=== PATIENT | female | born 1970 | race Caucasian/White ===

== ENCOUNTER 2020-08-24 11:41 | Outpatient (REF) | payer OTHER, SELFPAY ==
[2020-08-24 12:19] LABS: COVID-19 Test Negative (Negative)
== END 2020-08-24 11:42 | disposition home or self-care (01) ==
LOC: HO.LAB 11:41
PROVIDERS: Visit Provider Internal Medicine
DX: Z20.828 Contact with and (suspected) exposure to other viral communicable diseases (principal)
CPT/HCPCS: 87635

== ENCOUNTER 2020-10-10 14:43 | Outpatient (REF) | payer SELFPAY | END 2020-10-10 14:44 | disposition home or self-care (01) | LOC: HO.LNP 14:43 | PROVIDERS: Visit Provider Pathology Anatomic Pathology & Clinical Pathology | DX: Z20.828 Contact with and (suspected) exposure to other viral communicable diseases (principal) | CPT/HCPCS: 0241U ==

== ENCOUNTER 2020-10-24 08:49 | Outpatient (REF) | payer OTHER, SELFPAY ==
[2020-10-24 09:55] LABS: COVID-19 Test Negative (Negative)
[2020-11-15 09:54] LABS: SARS-COV-2 PCR UMBRL NOT DETECTED
[2020-12-27 13:19] LABS: SARS-COV-2 PCR UMBRL NEGATIVE
[2021-01-10 08:14] LABS: SARS-COV-2 PCR UMBRL NEGATIVE
[2021-01-17 08:51] LABS: SARS-COV-2 PCR UMBRL NEGATIVE
[2021-01-24 08:53] LABS: SARS-COV-2 PCR UMBRL NEGATIVE
[2021-02-08 08:27] LABS: SARS-COV-2 PCR UMBRL NEGATIVE
[2021-03-03 13:32] LABS: SARS-COV-2 PCR UMBRL NEGATIVE
[2021-03-17 09:45] LABS: SARS-COV-2 PCR UMBRL NEGATIVE
== END 2020-10-24 08:50 | disposition home or self-care (01) ==
LOC: HO.EMPCOV 08:49
PROVIDERS: Visit Provider Internal Medicine
DX: Z20.828 Contact with and (suspected) exposure to other viral communicable diseases (principal)
CPT/HCPCS: 36415; 87635; C9803; U0003

== ENCOUNTER 2020-11-01 14:25 | Outpatient (REF) | payer OTHER, SELFPAY ==
[2020-11-01 14:49] LABS: COVID-19 Test Negative (Negative); IDNOW Serial# 55D5AD1C
== END 2020-11-01 14:26 | disposition home or self-care (01) ==
LOC: HO.LAB 14:25
PROVIDERS: Visit Provider Internal Medicine
DX: Z20.828 Contact with and (suspected) exposure to other viral communicable diseases (principal)
CPT/HCPCS: 87635; C9803

== ENCOUNTER → 2021-01-31 11:50 | Outpatient (BNVA) | payer OTHER, SELFPAY | PROVIDERS: PCP Internal Medicine; Visit Provider Physician Assistant ==

== ENCOUNTER → 2021-02-14 08:40 | Outpatient (BNVA) | payer OTHER, SELFPAY | PROVIDERS: PCP Internal Medicine; Visit Provider Surgery ==

== ENCOUNTER 2021-02-21 11:20 | Outpatient (REF) | payer OTHER, SELFPAY ==
--- NOTE | ~2021-02-21 | XR_ITS ---
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 FINDINGS: Lungs are clear. No consolidation, pneumothorax, or pleural effusion. Cardiac and mediastinal contours are normal. Pulmonary vasculature is unremarkable. Trachea is midline. Osseous structures are unremarkable. XR/XR chest 2V IMPRESSION: Normal chest radiographs.
--- NOTE | 2021-02-21 11:34 | ECG_ITS ---
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 Rate : 078 BPM Atrial Rate : 078 BPM P-R Int : 146 ms QRS Dur : 076 ms QT Int : 388 ms P-R-T Axes : 055 027 018 degrees QTc Int : 442 ms Normal sinus rhythm Normal ECG No previous ECGs available Referred By: Kristian Shaw Electronically Signed By:Britton Dong
[2021-02-21 12:05] LABS: MANUAL DIFF FLAG NO
[2021-02-21 12:14] LABS: Basophils Absolute Auto 0.1 X10*3/uL (0.0-0.2); Basophils Percent Auto 0.7 % (0-2); Eosinophils Absolute Auto 0.3 X10*3/uL (0.0-0.4); Eosinophils Percent Auto 3.3 % (0-4); Hematocrit 35.2 % (37-47); Hemoglobin 11.3 g/dl (12.0-16.0); Imm Gran Abs Auto 0.04 X10*3/uL (0.00-0.03); Imm Gran Pct Auto 0.5 % (0.0-0.4); Lymphocytes Absolute Auto 2.3 X10*3/uL (1.2-4.9); Lymphocytes Percent Auto 31.1 % (20-40); Mean Corpuscular HGB Conc 32.1 g/dl (31.0-35.0); Mean Corpuscular Hemoglobin 26.3 pg (27.0-33.0); Mean Corpuscular Volume 82.1 fL (80-98); Mean Platelet Volume 9.3 fL (9.4-12.3); Monocytes Absolute Auto 0.6 X10*3/uL (0.1-1.2); Monocytes Percent Auto 7.3 % (2-11); Neutrophils Absolute Auto 4.3 X10*3/uL (2.0-8.3); Neutrophils Percent Auto 57.1 % (45-73); Platelet Count 340 X10*3/uL (160-400); Red Blood Count 4.29 X10*6/uL (4.20-5.50); Red Cell Distribution Width 15.6 % (11.0-16.0); White Blood Count 7.5 X10*3/uL (4.8-10.8)
[2021-02-21 12:45] LABS: Estimated Average Glucose 105 mg/dL; Hemoglobin A1c % 5.3 %
[2021-02-21 12:53] LABS: Alanine Aminotransferase 16 U/L (0-31); Albumin Level 4.6 g/dL (3.5-5.0); Alkaline Phosphatase 68 U/L (39-117); Anion Gap 13 (12-20); Aspartate Amino Transferase 21 U/L (5-31); Bilirubin Total 0.7 mg/dL (0.0-1.0); Blood Urea Nitrogen 25 mg/dL (9-16); C Reactive Protein 2.57 mg/dL (< or = 0.50); Calcium 9.3 mg/dL (8.4-10.2); Carbon Dioxide 21 mmol/L (22-29); Chloride 104 mmol/L (96-108); Cholesterol 250 mg/dL; Estimated Glomerular Filt Rate > 60; Glucose Random 130 mg/dL (60-115); HDL Cholesterol 49 mg/dL; LDL Cholesterol Calculated 170 mg/dl; Potassium 4.4 mmol/L (3.3-5.1); Sodium 134 mmol/L (135-145); Total Protein 7.4 g/dL (6.5-8.0); Triglycerides 155 mg/dL
[2021-02-21 13:15] LABS: Ferritin 21 ng/mL (10-250); TSH reflex Free T4 1.26 uIU/mL (0.32-4.0); Vitamin D 25-OH Total 40.5 ng/mL (>30)
[2021-02-21 13:16] LABS: Folate 8.2 ng/mL (> or = 4.0); Vitamin B12 631 pg/mL (200-900)
[2021-02-22 09:17] LABS: Insulin Level Total 21.5 uIU/mL
[2021-02-23 13:46] LABS: Calcium (PTHI) 9.4 mg/dL (8.6-10.2); PTHI 41 pg/mL (14-64)
[2021-02-24 16:11] LABS: Zinc 83 mcg/dL (60-130)
[2021-02-25 12:01] LABS: Vitamin B1 16 nmol/L (8-30)
[2021-02-27 05:17] LABS: Vitamin A 69 mcg/dL (38-98)
== END 2021-02-21 11:21 | disposition home or self-care (01) ==
LOC: HO.LAB 11:20
PROVIDERS: PCP Physician Assistant Medical; Visit Provider Surgery
DX: E66.01 Morbid (severe) obesity due to excess calories (principal); G47.30 Sleep apnea, unspecified; I10 Essential (primary) hypertension; I48.91 Unspecified atrial fibrillation; K21.9 Gastro-esophageal reflux disease without esophagitis; D68.2 Hereditary deficiency of other clotting factors
CPT/HCPCS: 36415; 71046; 80053; 80061; 82306; 82607; 82728; 82746; 83036; 83525; 83970; 84425; 84443; 84590; 84630; 85025; 86140; 93005

== ENCOUNTER 2021-03-07 08:10 | Outpatient (REF) | payer OTHER, SELFPAY ==
--- NOTE | ~2021-03-07 | US_ITS ---
EXAMINATION: US COMPLETE ABDOMEN WITH LIVER ELASTOGRAPHY CLINICAL INFORMATION: Gastroesophageal reflux disease COMPARISON: None. TECHNIQUE: Real-time imaging of the abdominal viscera. Noninvasive ultrasound liver fibrosis assessment is performed using [employer] ElastPQ point quantification shear wave elastography (pSWE) with a C5-2 MHz transducer. Multiple elastography samples are obtained. FINDINGS: PANCREAS: The visualized pancreatic head and body are normal in appearance. The remainder of the pancreas is obscured from visualization by the overlying bowel gas. ABDOMINAL AORTA: The proximal, middle, and distal aortic segments are normal in caliber. INFERIOR VENA CAVA: Visualized portions are normal. LIVER: Normal. The liver demonstrates normal size, contour and echogenicity. No focal lesion or intrahepatic biliary duct dilatation. The right lobe measures 16 cm in length. The left lobe measures 11 cm in length. Portal flow is normal/stable Shear wave liver elastography median stiffness is 1.38 m/s (reference: normal median stiffness is 1.3 m/s or less). IQR/median stiffness to assess sampling precision is 0.13 (reference: good quality data set is IQR/median stiffness of 0.15 or less). GALLBLADDER: Normal. The gallbladder is physiologically distended without evidence of stones, sludge, polyps, wall thickening or pericholecystic fluid. COMMON BILE DUCT: Normal in caliber measuring 0.5 cm in diameter. RIGHT KIDNEY: Normal. No hydronephrosis. No renal calculi or focal parenchymal lesions. The kidney measures 12 cm in maximum dimension. LEFT KIDNEY: Normal. No hydronephrosis. No renal calculi or focal parenchymal lesions. The kidney measures 11.7 cm in maximum dimension. SPLEEN: Normal. The spleen measures 12.5 cm in maximum dimension. FREE FLUID: None. US/US abdomen comp w elastography IMPRESSION: 1. Impression: Echogenic liver. Limited visualization of the tail the pancreas. 2. Liver elastography: Minimally elevated liver stiffness. Adequate sampling. In the absence of other clinical signs, rule out compensated advanced chronic liver disease. REFERENCE: Society of Radiologists in Ultrasound Liver Stiffness Thresholds (2020): LIVER STIFFNESS THRESHOLDS: *Liver Stiffness equal or less than 1.3 m/s: High probability of being normal. *Liver Stiffness less than 1.7 m/s: In the absence of other known clinical signs, rules out compensated advanced chronic liver disease. *Liver Stiffness 1.7-2.1 m/s: Suggestive of compensated advanced chronic liver disease but need further test for confirmation. *Liver Stiffness over 2.1 m/s: Rules in compensated advanced chronic liver disease. *Liver Stiffness over 2.4 m/s: Suggestive of clinically significant portal hypertension. QUALITY OF DATA SET: *IQR/Median value equal or less than 0.15 implies a quality data set. *IQR/Median value over 0.15 implies a poor quality data set. SIGNIFICANT CHANGE FROM PRIOR EXAM: Significant change if liver stiffness measurement is 10% or greater from prior exam. OTHER CONSIDERATIONS: The stage of liver fibrosis may be overestimated in the setting of acute hepatitis, liver inflammation, elevated liver function tests, hepatic vascular congestion, obstructive cholestasis, non-fasting state, and infiltrative diseases such as amyloidosis and lymphoma. In some patients with NAFLD, the liver stiffness thresholds for compensated advanced chronic liver disease may be lower. In causes other than viral hepatitis and NAFLD, liver stiffness thresholds are not well established.
--- NOTE | ~2021-03-07 | FL_ITS ---
EXAMINATION: XR GI SERIES CLINICAL INFORMATION: Abdominal pain. COMPARISON: None. TECHNIQUE: Chain upper GI air contrast study was performed. FINDINGS: Following oral administration of thick barium and effervescent granules, there is normal propagation of bolus from the oral cavity through the pharynx and esophagus and into the stomach without any evidence of obstruction, narrowing or stricture. The course, caliber and peristalsis of the stomach or duodenal bulb are normal. There is a large gastroesophageal reflux into the mid esophagus. No hiatal hernia seen. FLUOROSCOPY TIME: 1.5 minutes. DOSE AREA PRODUCT: 70.698 uGy-m2 (microgray-meter squared). FL/FL upper GI series IMPRESSION: Large gastroesophageal reflux, otherwise unremarkable upper GI air-contrast study.
== END 2021-03-07 08:11 | disposition home or self-care (01) ==
LOC: HO.US 08:10
PROVIDERS: PCP Physician Assistant Medical; Visit Provider Surgery
DX: Z01.818 Encounter for other preprocedural examination (principal); E66.01 Morbid (severe) obesity due to excess calories; Z68.43 Body mass index [BMI] 50.0-59.9, adult; K21.9 Gastro-esophageal reflux disease without esophagitis; D68.2 Hereditary deficiency of other clotting factors; G47.30 Sleep apnea, unspecified; I10 Essential (primary) hypertension; I48.91 Unspecified atrial fibrillation; D64.9 Anemia, unspecified; Z71.3 Dietary counseling and surveillance
CPT/HCPCS: 74240; 76705; 76981

== ENCOUNTER → 2021-03-14 13:48 | Outpatient (BNVA) | payer OTHER, SELFPAY | PROVIDERS: PCP Internal Medicine; Visit Provider Dietitian, Registered | DX: E66.01 Morbid (severe) obesity due to excess calories (principal); Z68.43 Body mass index [BMI] 50.0-59.9, adult | CPT/HCPCS: 97802 ==

== ENCOUNTER 2021-03-20 12:37 | Day surgery (SDC) | payer OTHER, SELFPAY ==
[2021-03-14 11:14] VITALS: BMI 57.8
--- NOTE | 2021-03-19 08:41 | HO.ANESPROP2 ---
Documented by User: Elsa Jolynn 03/19/21 08:46 HPI - Anesthesia Eval Consult details Narrative: 50yo F for Upper Endoscopy Xarelto for Afib PMFSH Active Problems Active Problems: All Active Problems (Updated 03/07/21 @ 13:22 by Kristian Shaw MD) Anemia (Acute) Back pain (Acute) Insomnia (Acute) Panic attacks (Acute) Anxiety (Acute) Depression (Acute) Pulmonary embolism (Acute) Factor V deficiency (Acute) Sleep apnea with use of continuous positive airway pressure (CPAP) (Acute) GERD (gastroesophageal reflux disease) (Acute) Hypertension (Acute) Atrial fibrillation (Acute) Morbid obesity (Acute) Past Medical History Medical History Anxiety Atrial fibrillation Back pain COVID-19 Depression Factor V deficiency GERD (gastroesophageal reflux disease) Hypertension Insomnia Morbid obesity Panic attacks Pulmonary embolism Sleep apnea with use of continuous positive airway pressure (CPAP) Family History Family History Mother COPD (chronic obstructive pulmonary disease) Hypertension Hyperlipidemia Father No problems noted. Brother No problems noted. Brother No problems noted. Brother No problems noted. Sister No problems noted. Surgical History Surgical History Hx of hand surgery Hx of wisdom tooth extraction Social History Social History Alcohol intake: current Alcohol intake frequency: holidays/special occasions only Smoking Status: Former smoker Advance Directives Information Provided: No Meds Allergies Allergy/AdvReac Type Severity Reaction Status Date / Time citalopram [From Celexa] Allergy Severe hives Verified 03/07/21 11:58 Home Medications Medication Instructions Recorded Confirmed Last Taken Type escitalopram oxalate 10 mg tablet 10 mg PO DAILY 01/31/21 02/14/21 Unknown History lorazepam 0.5 mg tablet 0.5 mg PO BID PRN 01/31/21 02/14/21 Unknown History metoprolol tartrate 25 mg tablet 25 mg PO DAILY 01/31/21 02/14/21 03/20/21 History 12.5 mg rivaroxaban 20 mg tablet 20 mg PO DAILY 01/31/21 02/14/21 03/12/21 History trazodone 50 mg tablet 50 mg PO BEDTIME 01/31/21 02/14/21 Unknown History ascorbic acid (vitamin C) 250 mg 250 mg PO DAILY 02/14/21 02/14/21 Unknown History tablet cholecalciferol (vitamin D3) 25 25 mcg PO DAILY 02/14/21 02/14/21 Unknown History mcg (1,000 unit) capsule melatonin 5 mg capsule mg PO 02/14/21 02/14/21 Unknown History omega-3 fatty acids 500 mg capsule 500 mg PO DAILY 02/14/21 02/14/21 Unknown History omeprazole 10 mg capsule,delayed 10 mg PO DAILY 02/14/21 02/14/21 Unknown History release Exam Exam Date and Time: March 19, 2021 0841 Height,Weight and Vital Signs: Height 5 ft 2.5 in Weight 145.785 kg Pertinent Lab Results Pertinent Lab Results: Laboratory Tests 02/21/21 02/21/21 11:40 11:40 WBC 7.5 Hgb 11.3 L Hct 35.2 L Plt Count 340 Sodium 134 L Potassium 4.4 Chloride 104 Carbon Dioxide 21 L BUN 25 H Creatinine 0.93 Narrative Narrative: EKG 02/2021 Vent. Rate : 078 BPM Atrial Rate : 078 BPM P-R Int : 146 ms QRS Dur : 076 ms QT Int : 388 ms P-R-T Axes : 055 027 018 degrees QTc Int : 442 ms Normal sinus rhythm Normal ECG No previous ECGs available Assessment and Plan Assessment Anesthesia Assessment: Chart Reviewed Documented by User: Flower Moon 03/20/21 13:18 [facility] Past Medical History Medical History Anxiety Atrial fibrillation Back pain COVID-19 Depression Factor V deficiency GERD (gastroesophageal reflux disease) Hypertension Insomnia Morbid obesity Panic attacks Pulmonary embolism Sleep apnea with use of continuous positive airway pressure (CPAP) Family History Family History Mother COPD (chronic obstructive pulmonary disease) Hypertension Hyperlipidemia Father No problems noted. Brother No problems noted. Brother No problems noted. Brother No problems noted. Sister No problems noted. Surgical History Surgical History Hx of hand surgery Hx of wisdom tooth extraction Social History Social History Alcohol intake: current Alcohol intake frequency: holidays/special occasions only Smoking Status: Former smoker Advance Directives Information Provided: No Meds Allergies Allergy/AdvReac Type Severity Reaction Status Date / Time citalopram [From Celexa] Allergy Severe hives Verified 03/07/21 11:58 Home Medications Medication Instructions Recorded Confirmed Last Taken Type escitalopram oxalate 10 mg tablet 10 mg PO DAILY 01/31/21 02/14/21 Unknown History lorazepam 0.5 mg tablet 0.5 mg PO BID PRN 01/31/21 02/14/21 Unknown History metoprolol tartrate 25 mg tablet 25 mg PO DAILY 01/31/21 02/14/21 03/20/21 History 12.5 mg rivaroxaban 20 mg tablet 20 mg PO DAILY 01/31/21 02/14/21 03/12/21 History trazodone 50 mg tablet 50 mg PO BEDTIME 01/31/21 02/14/21 Unknown History ascorbic acid (vitamin C) 250 mg 250 mg PO DAILY 02/14/21 02/14/21 Unknown History tablet cholecalciferol (vitamin D3) 25 25 mcg PO DAILY 02/14/21 02/14/21 Unknown History mcg (1,000 unit) capsule melatonin 5 mg capsule mg PO 02/14/21 02/14/21 Unknown History omega-3 fatty acids 500 mg capsule 500 mg PO DAILY 02/14/21 02/14/21 Unknown History omeprazole 10 mg capsule,delayed 10 mg PO DAILY 02/14/21 02/14/21 Unknown History release Exam Airway Mallampati Class: II TM Dist: >3cm Neck ROM: Full Loose/Missing/Broken Teeth: No Heart: RRR Lungs: CTA Assessment and Plan Assessment Anesthesia Assessment: Anesthesia Plan Discussed and Chart Reviewed Final Anesthetic Review NPO: Yes ASA Class: III Final Preanesthetic Review: Meds/Allgs Chart Reviewed, Consent Obtained/Reviewed and Anes Risks/Benef Reviewed Patient Risk: Intermediate Procedure Risk: Intermediate Anesthetic Plan Anesthetic Plan: MAC: Disposition: Standard PACU
--- NOTE | 2021-03-20 07:27 | MHC.SHP ---
Pre-Procedural Eval Section A The patient is an INPATIENT: No The History & Physical has been completed within 30 days and I have reviewed it.: Yes Section B Chief Complaint: reflux disease Details of Present Illness: GERD Relevant Family History (Specify if Yes): No Relevant Social History: None Present Medications: see Short Stay Collaborative assessment Medical History: No relevant PMH History of Previous Operations: No relevant previous surgery Allergies: Allergies Allergy/AdvReac Type Severity Reaction Status Date / Time citalopram [From Celexa] Allergy Severe hives Verified 03/07/21 11:58 Review of Systems Sugical H&P ROS: Negative: Constitution, Cardiovascular, Respiratory, Neurological, Psychiatric, Hem-Onc, Allergic/Immunologic, Gastrointestinal, Genitourinary, Musculoskeletal, Integumentary, Endocrine and Eyes/Ears/Nose/Throat Exam Surgical H&P Exam: Normal: HEENT, Normal: Heart, Normal: Lungs, Normal: Extremities, Normal: Abdomen, Normal: Skin and Normal: Neurological Plan Diagnosis/Plan: Unchanged I have reviewed the history and physical and performed a pertinent physical examination on my patient. No changes have occurred unless specified.
[2021-03-20 13:08] VITALS: BP 111/43; PULSE 97; RESP 16; TEMP 36.8; O2SAT 97
[2021-03-20 13:08] LABS: UPreg QC Valid YES; Urine Pregnancy NEGATIVE (NEGATIVE)
[2021-03-20 13:21] LABS: COVID-19 Test Negative (Negative); IDNOW Serial# 9DD0AD1C
[2021-03-20] MEDS: Lactated Ringers 1,000 ML 100 ML IVCONT (13:24)
--- NOTE | 2021-03-20 13:27 | P.BOP_ITS ---
Brief Operative Note Date of Service: 03/20/21 Pre-op diagnosis: GERD and morbid obesity Post-op diagnosis: same Procedure: PROCEDURE DATE: 03/20/2021 PREOPERATIVE DIAGNOSIS: GERD POSTOPERATIVE DIAGNOSIS: Same as above. PROCEDURE: [id number] with biopsies Surgeon: David Shaw M.D.. Ph.D. Corrosion Control Specialist: None Anesthesia: IV sedation Estimated blood loss: Minimal FINDINGS AND PROCEDURE: OPERATIVE INDICATIONS: The patient is a 50 year old female known to me who needed an H pylori breath test. Due to severe GERD she could not stop the Omeprazole for 2 weeks. Based on this information I recommended an upper endoscopy to perform a biopsy. Risks and complications of the surgery were discussed with the patient in advance particularly the possibility of perforation or bleeding that may require surgical intervention. The patient understood the risks and was in agreement with the plan. PROCEDURE: After informed consent was obtained by the patient, the patient was transferred to the Operating Room and was placed in the supine position. After successful induction of IV sedation, a mouth block was inserted and the patient was placed in the left lateral decubitus position. An upper endoscopy was performed next, the oropharynx and esophagus appeared within the normal limits. There was a small hiatal hernia. The z-line was smooth. Biopsy was obtained from the gastric body. No significant bleeding was noted from any of the biopsy sites. The scope was not advanced into the duodenum because of patient's severe desaturation. Gross inspection of the stomach was normal. At that point the stomach was decompressed and the scope was withdrawn from the patient's mouth. The patient extubated and was transferred in stable condition to the Recovery Room for further care. I was present and performed all steps of the procedure. There were no residents to assist with this case. David Shaw M.D., Ph.D. Surgeon: Kristian Shaw MD Anesthesia: MAC Was an Corrosion Control Specialist used for this Procedure?: No Estimated blood loss (mL): 0 IV fluids (mL): 400 Urine output (mL): 0 (No Menendez to record) Pathology: other (1) GEJ x2, 2) distal esophagus x2, fundus x1, antrum x1) Condition: stable Disposition: PACU
[2021-03-20 13:57] VITALS: BP 103/45; PULSE 69; RESP 14; TEMP 36.8; O2SAT 99
[2021-03-20 14:12] VITALS: BP 93/51; PULSE 65; RESP 18; O2SAT 97
[2021-03-20 14:26] VITALS: BP 108/57; PULSE 67; RESP 17; O2SAT 99
== END 2021-03-20 14:50 ==
LOC: HO.SSS 12:37
PROVIDERS: Nurse Practitioner; PCP Physician Assistant Medical; Visit Provider Surgery
PROC: 0DJ08ZZ Inspection of Upper Intestinal Tract, Via Natural or Artificial Opening Endoscopic (ICD-10-PCS; CPT 43235; principal; 2021-03-20 13:30)
DX: K21.9 Gastro-esophageal reflux disease without esophagitis (principal); K29.50 Unspecified chronic gastritis without bleeding; B96.81 Helicobacter pylori [H. pylori] as the cause of diseases classified elsewhere; D64.9 Anemia, unspecified; K29.40 Chronic atrophic gastritis without bleeding; K44.9 Diaphragmatic hernia without obstruction or gangrene; E66.01 Morbid (severe) obesity due to excess calories; Z68.43 Body mass index [BMI] 50.0-59.9, adult; I48.91 Unspecified atrial fibrillation; I10 Essential (primary) hypertension; G47.33 Obstructive sleep apnea (adult) (pediatric); Z99.89 Dependence on other enabling machines and devices; Z79.899 Other long term (current) drug therapy; Z86.16 Personal history of COVID-19; Z87.891 Personal history of nicotine dependence
CPT/HCPCS: 43239; 36415; 81025; 87635; 88305; 88342; J2250

== ENCOUNTER → 2021-03-28 08:27 | Outpatient (BNVA) | payer OTHER, SELFPAY | PROVIDERS: PCP Physician Assistant Medical; Visit Provider Surgery ==

== ENCOUNTER → 2021-04-20 06:45 | Outpatient (BNVA) | payer OTHER, SELFPAY | PROVIDERS: PCP Physician Assistant Medical; Visit Provider Surgery ==

== ENCOUNTER → 2021-05-10 10:33 | Outpatient (BNVA) | payer OTHER, SELFPAY | PROVIDERS: PCP Physician Assistant Medical; Visit Provider Nurse Practitioner ==

== ENCOUNTER 2021-05-22 16:15 | Day surgery (SDC) | payer OTHER, SELFPAY ==
[2021-05-16 11:43] VITALS: BMI 56.7
--- NOTE | 2021-05-21 10:49 | HO.ANESPROP2 ---
Documented by User: Elsa Jolynn 05/21/21 13:07 HPI - Anesthesia Eval Consult details Narrative: 50yo F for Upper Endoscopy Xarelto for Afib/ hx of PE s/p EGD with TIVA 03/2021 PMFSH Active Problems Active Problems: All Active Problems (Updated 05/10/21 @ 11:44 by RENAE Vazquez) Anemia (Acute) H. pylori infection (Acute) Colon cancer screening (Acute) Back pain (Acute) Insomnia (Acute) Panic attacks (Acute) Anxiety (Acute) Depression (Acute) Pulmonary embolism (Acute) Factor V deficiency (Acute) Sleep apnea with use of continuous positive airway pressure (CPAP) (Acute) GERD (gastroesophageal reflux disease) (Acute) Hypertension (Acute) Atrial fibrillation (Acute) Morbid obesity (Acute) Past Medical History Medical History Anxiety Atrial fibrillation Back pain COVID-19 Depression Factor V deficiency GERD (gastroesophageal reflux disease) Hypertension Insomnia Morbid obesity Panic attacks Pulmonary embolism Sleep apnea with use of continuous positive airway pressure (CPAP) Family History Family History Mother COPD (chronic obstructive pulmonary disease) Hypertension Hyperlipidemia Father No problems noted. Brother No problems noted. Brother No problems noted. Brother No problems noted. Sister No problems noted. Surgical History Surgical History History of esophagogastroduodenoscopy (EGD) Hx of hand surgery Hx of wisdom tooth extraction Social History Social History Alcohol intake: current Alcohol intake frequency: holidays/special occasions only Patient Tobacco Use Status: Former Tobacco user Quit Date: 8 yrs ago Meds Allergies Allergy/AdvReac Type Severity Reaction Status Date / Time citalopram [From Celexa] Allergy Severe hives Verified 05/22/21 15:23 Home Medications Medication Instructions Recorded Confirmed Last Taken Type escitalopram oxalate 10 mg tablet 10 mg PO DAILY 01/31/21 05/16/21 05/22/21 08:00 History lorazepam 0.5 mg tablet 0.5 mg PO BID PRN 01/31/21 05/16/21 Unknown History metoprolol tartrate 25 mg tablet 25 mg PO DAILY 01/31/21 05/16/21 05/22/21 08:00 History rivaroxaban 20 mg tablet 20 mg PO DAILY 01/31/21 05/16/21 05/15/21 History trazodone 50 mg tablet 50 mg PO BEDTIME 01/31/21 05/16/21 Unknown History ascorbic acid (vitamin C) 250 mg 250 mg PO DAILY 02/14/21 05/16/21 Unknown History tablet cholecalciferol (vitamin D3) 25 25 mcg PO DAILY 02/14/21 05/16/21 Unknown History mcg (1,000 unit) capsule melatonin 5 mg capsule 5 mg PO BEDTIME 02/14/21 05/16/21 Unknown History omega-3 fatty acids 500 mg capsule 500 mg PO DAILY 02/14/21 05/16/21 Unknown History omeprazole 10 mg capsule,delayed 10 mg PO DAILY 02/14/21 05/16/21 Unknown History release Exam Exam Date and Time: May 21, 2021 1049 Height,Weight and Vital Signs: Height 5 ft 2.5 in Weight 142.882 kg Pertinent Lab Results Pertinent Lab Results: Laboratory Tests 02/21/21 02/21/21 11:40 11:40 WBC 7.5 Hgb 11.3 L Hct 35.2 L Plt Count 340 Sodium 134 L Potassium 4.4 Chloride 104 Carbon Dioxide 21 L BUN 25 H Creatinine 0.93 Narrative Narrative: EKG 02/2021 Vent. Rate : 078 BPM Atrial Rate : 078 BPM P-R Int : 146 ms QRS Dur : 076 ms QT Int : 388 ms P-R-T Axes : 055 027 018 degrees QTc Int : 442 ms Normal sinus rhythm Normal ECG No previous ECGs available Assessment and Plan Assessment Anesthesia Assessment: Chart Reviewed Documented by User: Aren Bonds 05/22/21 15:48 PMFSH Past Medical History Medical History Anxiety Atrial fibrillation Back pain COVID-19 Depression Factor V deficiency GERD (gastroesophageal reflux disease) Hypertension Insomnia Morbid obesity Panic attacks Pulmonary embolism Sleep apnea with use of continuous positive airway pressure (CPAP) Family History Family History Mother COPD (chronic obstructive pulmonary disease) Hypertension Hyperlipidemia Father No problems noted. Brother No problems noted. Brother No problems noted. Brother No problems noted. Sister No problems noted. Surgical History Surgical History History of esophagogastroduodenoscopy (EGD) Hx of hand surgery Hx of wisdom tooth extraction Social History Social History Alcohol intake: current Alcohol intake frequency: holidays/special occasions only Patient Tobacco Use Status: Former Tobacco user Quit Date: 8 yrs ago Meds Allergies Allergy/AdvReac Type Severity Reaction Status Date / Time citalopram [From Celexa] Allergy Severe hives Verified 05/22/21 15:23 Home Medications Medication Instructions Recorded Confirmed Last Taken Type escitalopram oxalate 10 mg tablet 10 mg PO DAILY 01/31/21 05/16/21 05/22/21 08:00 History lorazepam 0.5 mg tablet 0.5 mg PO BID PRN 01/31/21 05/16/21 Unknown History metoprolol tartrate 25 mg tablet 25 mg PO DAILY 01/31/21 05/16/21 05/22/21 08:00 History rivaroxaban 20 mg tablet 20 mg PO DAILY 01/31/21 05/16/21 05/15/21 History trazodone 50 mg tablet 50 mg PO BEDTIME 01/31/21 05/16/21 Unknown History ascorbic acid (vitamin C) 250 mg 250 mg PO DAILY 02/14/21 05/16/21 Unknown History tablet cholecalciferol (vitamin D3) 25 25 mcg PO DAILY 02/14/21 05/16/21 Unknown History mcg (1,000 unit) capsule melatonin 5 mg capsule 5 mg PO BEDTIME 02/14/21 05/16/21 Unknown History omega-3 fatty acids 500 mg capsule 500 mg PO DAILY 02/14/21 05/16/21 Unknown History omeprazole 10 mg capsule,delayed 10 mg PO DAILY 02/14/21 05/16/21 Unknown History release Exam Airway Mallampati Class: III TM Dist: >3cm Neck ROM: Full Loose/Missing/Broken Teeth: No Heart: [id number] Lungs: cta b/l Assessment and Plan Assessment Anesthesia Assessment: Anesthesia Plan Discussed, PAT Visit and Chart Reviewed Final Anesthetic Review NPO: Yes ASA Class: III Final Preanesthetic Review: No Changes in Pt Med Stat, Meds/Allgs Chart Reviewed, Consent Obtained/Reviewed and Anes Risks/Benef Reviewed Patient Risk: Intermediate Procedure Risk: Low Assessment/Block/Sedation in SS: Assess/Block/Sedation-SS Anesthetic Plan Anesthetic Plan: MAC: and Agree w/ Assess. and Plan Disposition: Standard PACU
--- NOTE | 2021-05-21 19:27 | MHC.SHP ---
Pre-Procedural Eval Section A Date of Service: 05/21/21 The patient is an INPATIENT: No The History & Physical has been completed within 30 days and I have reviewed it.: Yes Section B Chief Complaint: GERD Details of Present Illness: H pylori infection Relevant Family History (Specify if Yes): No Relevant Social History: None Present Medications: see Short Stay Collaborative assessment Medical History: No relevant PMH History of Previous Operations: No relevant previous surgery Allergies: Allergies Allergy/AdvReac Type Severity Reaction Status Date / Time citalopram [From Celexa] Allergy Severe hives Verified 05/10/21 10:43 Review of Systems Sugical H&P ROS: Negative: Constitution, Cardiovascular, Respiratory, Neurological, Psychiatric, Hem-Onc, Allergic/Immunologic, Gastrointestinal, Genitourinary, Musculoskeletal, Integumentary, Endocrine and Eyes/Ears/Nose/Throat Exam Surgical H&P Exam: Normal: HEENT, Normal: Heart, Normal: Lungs, Normal: Extremities, Normal: Abdomen, Normal: Skin and Normal: Neurological Plan Diagnosis/Plan: Unchanged (Follow up enedoscopy to assess resolution of H pylori infection) I have reviewed the history and physical and performed a pertinent physical examination on my patient. No changes have occurred unless specified.
--- NOTE | 2021-05-22 14:01 | P.BOP_ITS ---
Brief Operative Note Date of Service: 05/22/21 Pre-op diagnosis: H pylori infection Post-op diagnosis: same Procedure: PROCEDURE DATE: 05/22/2021 PREOPERATIVE DIAGNOSIS: H pylori infection POSTOPERATIVE DIAGNOSIS: Same as above. PROCEDURE: Qbtwjadh-lvtllo-vogtysvtvflt with biopsies Surgeon: David Shaw M.D.. Ph.D. Sorter Operator: None Anesthesia: IV sedation Estimated blood loss: Minimal FINDINGS AND PROCEDURE: OPERATIVE INDICATIONS: The patient is a 50 year old female known to de who is evaluated for morbid obesity and bariatric surgery. She had severe GERD and was not able to discontinue the Omeprazole for 2 weeks to perform the H. pylori breath test. She presented for an endoscopy and a biopsy. This showed active H pylori infection for which she received appropriate treatment. She present for follow up endoscopy to confirm that the H pylori infection has resolved. Risks and complications of the surgery were discussed with the patient in advance particularly the possibility of perforation or bleeding that may require surgical intervention. The patient understood the risks and was in agreement with the plan. PROCEDURE: After informed consent was obtained by the patient, the patient was transferred to the Operating Room and was placed in the supine position. After successful induction of IV sedation, a mouth block was inserted and the patient was placed in the left lateral decubitus position. An upper endoscopy was performed next, the oropharynx and esophagus appeared within the normal limits. The z-line was smooth. A biopsy was obtained from the GE junction. The stomach was entered and it appeared to be of normal size. There was no gastritis. There was no stricture or ulcer. Biopsy was obtained from the mid-body of the stomach. No significant bleeding was noted from any of the biopsy sites. The duodenum was not examined because the patient was desaturating. At that point the stomach were decompressed and the scope was withdrawn from the patient's mouth. The patient extubated and was transferred in stable condition to the Recovery Room for further care. I was present and performed all steps of the procedure. There were no residents to assist with this case. David Shaw M.D., Ph.D. Surgeon: Kristian Shaw MD Anesthesia: MAC Was an Sorter Operator used for this Procedure?: No Estimated blood loss (mL): 0 IV fluids (mL): 400 Urine output (mL): 0 (No Menendez to record) Pathology: other (Mid gastric body) Condition: stable Disposition: PACU
[2021-05-22 15:31] VITALS: BP 131/47; PULSE 60; RESP 18; TEMP 36.6; O2SAT 92
[2021-05-22 15:34] LABS: UPreg QC Valid YES; Urine Pregnancy NEGATIVE (NEGATIVE)
[2021-05-22 15:50] LABS: COVID-19 Test Negative (Negative); IDNOW Serial# 9DD0AD1C
[2021-05-22] MEDS: Lactated Ringers 1,000 ML 80 ML IVCONT (16:04)
[2021-05-22 16:45] VITALS: BP 146/84; PULSE 68; RESP 16; TEMP 36.2; O2SAT 98
[2021-05-22 17:00] VITALS: BP 128/83; PULSE 62; RESP 17; O2SAT 97
[2021-05-22 17:15] VITALS: BP 139/74; PULSE 60; RESP 16; TEMP 37; O2SAT 96
== END 2021-05-22 17:35 | disposition home or self-care (01) ==
LOC: HO.SSS 05-23 08:29
PROVIDERS: Nurse Practitioner; PCP Physician Assistant Medical; Visit Provider Surgery
PROC: 0DJ08ZZ Inspection of Upper Intestinal Tract, Via Natural or Artificial Opening Endoscopic (ICD-10-PCS; CPT 43235; principal; 2021-05-22 17:20)
DX: K21.9 Gastro-esophageal reflux disease without esophagitis (principal); K29.50 Unspecified chronic gastritis without bleeding; B96.81 Helicobacter pylori [H. pylori] as the cause of diseases classified elsewhere; I10 Essential (primary) hypertension; I26.99 Other pulmonary embolism without acute cor pulmonale; G47.33 Obstructive sleep apnea (adult) (pediatric); I48.91 Unspecified atrial fibrillation; E66.01 Morbid (severe) obesity due to excess calories; D68.2 Hereditary deficiency of other clotting factors; Z79.899 Other long term (current) drug therapy; Z99.89 Dependence on other enabling machines and devices; Z88.8 Allergy status to other drugs, medicaments and biological substances; Z87.891 Personal history of nicotine dependence; Z20.822 Contact with and (suspected) exposure to COVID-19
CPT/HCPCS: 43239; 36415; 81025; 87635; 88305; 88342

== ENCOUNTER → 2021-05-28 07:38 | Outpatient (BNVA) | payer OTHER, SELFPAY | PROVIDERS: PCP Physician Assistant Medical; Visit Provider Surgery ==

== ENCOUNTER → 2021-07-03 09:30 | Outpatient (BNVA) | payer OTHER, SELFPAY | PROVIDERS: PCP Physician Assistant Medical; Visit Provider Nurse Practitioner Family ==

== ENCOUNTER → 2021-07-18 08:02 | Outpatient (BNVA) | payer OTHER, SELFPAY | PROVIDERS: PCP Physician Assistant Medical; Visit Provider Surgery ==

== ENCOUNTER 2021-07-30 | Outpatient (REF) | payer OTHER, SELFPAY ==
[2021-07-31 15:19] LABS: FIT1 NEGATIVE (NEGATIVE)
[2021-07-31 15:20] LABS: FIT Int Ctl YES; FIT2 NEGATIVE (NEGATIVE)
== END 2021-07-30 00:01 | disposition home or self-care (01) ==
LOC: HO.LNP
PROVIDERS: Visit Provider Nurse Practitioner
DX: R10.9 Unspecified abdominal pain (principal); D64.9 Anemia, unspecified
CPT/HCPCS: 82274

== ENCOUNTER 2021-07-31 11:00 | Day surgery (SDC) | payer OTHER, SELFPAY ==
--- NOTE | 2021-07-30 10:31 | HO.ANESPROP2 ---
Documented by User: Elsa Neil NP 07/30/21 10:34 HPI - Anesthesia Eval Consult details Narrative: 50yo F for Colonoscopy Xarelto for Afib/ hx of PE s/p EGD with TIVA 05/2021 PMFSH Active Problems Active Problems: All Active Problems (Updated 05/10/21 @ 11:44 by RENAE Vazquez) Anemia (Acute) H. pylori infection (Acute) Colon cancer screening (Acute) Back pain (Acute) Insomnia (Acute) Panic attacks (Acute) Anxiety (Acute) Depression (Acute) Pulmonary embolism (Acute) Factor V deficiency (Acute) Sleep apnea with use of continuous positive airway pressure (CPAP) (Acute) GERD (gastroesophageal reflux disease) (Acute) Hypertension (Acute) Atrial fibrillation (Acute) Morbid obesity (Acute) Past Medical History Medical History Anxiety Atrial fibrillation Back pain COVID-19 Depression Factor V deficiency GERD (gastroesophageal reflux disease) Hypertension Insomnia Morbid obesity Panic attacks Pulmonary embolism Sleep apnea with use of continuous positive airway pressure (CPAP) Family History Family History Mother COPD (chronic obstructive pulmonary disease) Hypertension Hyperlipidemia Father No problems noted. Brother No problems noted. Brother No problems noted. Brother No problems noted. Sister No problems noted. Surgical History Surgical History History of esophagogastroduodenoscopy (EGD) Hx of hand surgery Hx of wisdom tooth extraction Social History Social History Alcohol intake: current Alcohol intake frequency: holidays/special occasions only Patient Tobacco Use Status: Former Tobacco user Quit Date: 2005 Use of substances other than those prescribed or required for medical reasons: No Are you DNR?: No Advance Directives: No Advance Directives Information Provided: Yes Patient : No (UCG negative 07/31/21) Meds Allergies Allergy/AdvReac Type Severity Reaction Status Date / Time citalopram [From Celexa] Allergy Severe hives Verified 07/03/21 09:32 Home Medications Medication Instructions Recorded Confirmed Last Taken Type lorazepam 0.5 mg tablet 0.5 mg PO BID PRN 01/31/21 05/16/21 Unknown History rivaroxaban 20 mg tablet 20 mg PO DAILY 01/31/21 05/16/21 07/25/21 History ascorbic acid (vitamin C) 250 mg 250 mg PO DAILY 02/14/21 05/16/21 Unknown History tablet cholecalciferol (vitamin D3) 25 25 mcg PO DAILY 02/14/21 05/16/21 Unknown History mcg (1,000 unit) capsule omega-3 fatty acids 500 mg capsule 500 mg PO DAILY 02/14/21 05/16/21 Unknown History escitalopram oxalate 10 mg tablet 20 mg PO DAILY tab 07/03/21 Unknown History metoprolol tartrate 25 mg tablet 12.5 mg PO BID tab 07/03/21 07/31/21 10:00 History omeprazole 10 mg capsule,delayed 20 mg PO DAILY cap 07/03/21 Unknown History release trazodone 50 mg tablet 75 mg PO BEDTIME tab 07/03/21 Unknown History Exam Exam Date and Time: July 30, 2021 1031 Pertinent Lab Results Pertinent Lab Results: Laboratory Tests 02/21/21 02/21/21 11:40 11:40 WBC 7.5 Hgb 11.3 L Hct 35.2 L Plt Count 340 Sodium 134 L Potassium 4.4 Chloride 104 Carbon Dioxide 21 L BUN 25 H Creatinine 0.93 Narrative Narrative: EKG 02/2021 Vent. Rate : 078 BPM ? ? Atrial Rate : 078 BPM ?? P-R Int : 146 ms? QRS Dur : 076 ms ? ? QT Int : 388 ms ? ? ? P-R-T Axes : 055 027 018 degrees ?? QTc Int : 442 ms ? Normal sinus rhythm Normal ECG No previous ECGs available Assessment and Plan Assessment Anesthesia Assessment: Chart Reviewed Documented by User: Flower Moon MD 07/31/21 12:28 [facility] Past Medical History Medical History Anxiety Atrial fibrillation Back pain COVID-19 Depression Factor V deficiency GERD (gastroesophageal reflux disease) Hypertension Insomnia Morbid obesity Panic attacks Pulmonary embolism Sleep apnea with use of continuous positive airway pressure (CPAP) Family History Family History Mother COPD (chronic obstructive pulmonary disease) Hypertension Hyperlipidemia Father No problems noted. Brother No problems noted. Brother No problems noted. Brother No problems noted. Sister No problems noted. Family history of problems with anesthesia: No Surgical History Surgical History History of esophagogastroduodenoscopy (EGD) Hx of hand surgery Hx of wisdom tooth extraction History of Problems with Anesthesia: No Social History Social History Alcohol intake: current Alcohol intake frequency: holidays/special occasions only Patient Tobacco Use Status: Former Tobacco user Quit Date: 2005 Use of substances other than those prescribed or required for medical reasons: No Are you DNR?: No Advance Directives: No Advance Directives Information Provided: Yes Patient : No (UCG negative 07/31/21) Meds Allergies Allergy/AdvReac Type Severity Reaction Status Date / Time citalopram [From Celexa] Allergy Severe hives Verified 07/03/21 09:32 Home Medications Medication Instructions Recorded Confirmed Last Taken Type lorazepam 0.5 mg tablet 0.5 mg PO BID PRN 01/31/21 05/16/21 Unknown History rivaroxaban 20 mg tablet 20 mg PO DAILY 01/31/21 05/16/21 07/25/21 History ascorbic acid (vitamin C) 250 mg 250 mg PO DAILY 02/14/21 05/16/21 Unknown History tablet cholecalciferol (vitamin D3) 25 25 mcg PO DAILY 02/14/21 05/16/21 Unknown History mcg (1,000 unit) capsule omega-3 fatty acids 500 mg capsule 500 mg PO DAILY 02/14/21 05/16/21 Unknown History escitalopram oxalate 10 mg tablet 20 mg PO DAILY tab 07/03/21 Unknown History metoprolol tartrate 25 mg tablet 12.5 mg PO BID tab 07/03/21 07/31/21 10:00 History omeprazole 10 mg capsule,delayed 20 mg PO DAILY cap 07/03/21 Unknown History release trazodone 50 mg tablet 75 mg PO BEDTIME tab 07/03/21 Unknown History Exam Airway Mallampati Class: III (Full neck) TM Dist: >3cm Neck ROM: Full Loose/Missing/Broken Teeth: No Heart: RRR Lungs: CTA Assessment and Plan Assessment Anesthesia Assessment: Anesthesia Plan Discussed Final Anesthetic Review Family History of Problems with Anesthesia: No History of Problems with Anesthesia: No NPO: Yes ASA Class: III Final Preanesthetic Review: Meds/Allgs Chart Reviewed, Consent Obtained/Reviewed and Anes Risks/Benef Reviewed Patient Risk: Intermediate Procedure Risk: Low Anesthetic Plan Anesthetic Plan: MAC: Disposition: Standard PACU
[2021-07-31 11:31] LABS: UPreg QC Valid YES; Urine Pregnancy NEGATIVE (NEGATIVE)
--- NOTE | 2021-07-31 11:36 | MHC.SHP ---
Pre-Procedural Eval Section A Date of Service: 07/31/21 The patient is an INPATIENT: No The History & Physical has been completed within 30 days and I have reviewed it.: No Section B Chief Complaint: Screening Details of Present Illness: Colon cancer screening Relevant Family History (Specify if Yes): Yes Relevant Social History: None Present Medications: see Short Stay Collaborative assessment Medical History: Significant History (Anxiety Atrial fibrillation Back pain COVID-19 Depression Factor V deficiency GERD (gastroesophageal reflux disease) Hypertension Insomnia Morbid obesity Panic attacks Pulmonary embolism Sleep apnea with use of continuous positive airway pressure (CPAP)) History of Previous Operations: Relevant previous surgery/procedure and date(s) (Hx of hand surgery Hx of wisdom tooth extraction) Allergies: Allergies Allergy/AdvReac Type Severity Reaction Status Date / Time citalopram [From Celexa] Allergy Severe hives Verified 07/03/21 09:32 Review of Systems Sugical H&P ROS: Negative: Constitution, Cardiovascular, Respiratory and Gastrointestinal Exam Surgical H&P Exam: Normal: Heart, Normal: Lungs, Normal: Extremities and Normal: Abdomen Plan Diagnosis/Plan: Unchanged I have reviewed the history and physical and performed a pertinent physical examination on my patient. No changes have occurred unless specified.
[2021-07-31 11:42] VITALS: BP 105/48; PULSE 58; RESP 18; TEMP 36.3; O2SAT 96; BMI 52.9
[2021-07-31] MEDS: Lactated Ringers 1,000 ML 100 ML IVCONT (11:51)
--- NOTE | 2021-07-31 12:28 | W.PM.OPN ---
Operative Note Operative Note Date of Service: 07/31/21 Narrative: Pre-op diagnosis:?Colon cancer screening Post-op diagnosis:?other (Colon polyps, diverticulosis) Procedure:? COLONOSCOPY TILL CECUM WITH BIOPSIES Consent: Indications for the procedure and potential complications of bleeding, perforation, reaction to medications and missed diagnosis were discussed with the patient and informed consent was obtained. Instrument: Olympus PCF H 190 L variable stiffness pediatric colonoscope Monitoring: Vital signs and clinical assessment, intermittent blood pressure monitoring, continuous EKG monitoring, Pulse oximetry and Carbon Dioxide monitoring were done throughout the procedure. Colon withdrawl time was 17 minutes. Procedure: The patient was placed in the left lateral decubitis position and pre-procedure medications were administered. After a digital rectal examination of the ano-rectum, the video colonoscope was inserted into the rectum and advanced through the colon to the cecum. The colonoscope was slowly withdrawn in a retrograde panoramic fashion and the colon mucosa was carefully examined including a retroflexed view of the rectum. Findings and interventions are described below. Procedure Difficulty: Without difficulty Findings: Terminal Ileum: Not evaluated Cecum:? Normal Ascending Colon:? Normal Transverse Colon:? A 4-5 mm sessile polyp removed with a cold bx. Descending Colon:? Moderate diverticulosis Sigmoid Colon:? A 2-3 mm diminutive appearing polyp removed with the cold biopsy.? Moderate diverticulosis Rectum:? Normal Ano-rectum:? Normal Colon preparation:? Good after some irrigation Impression and Post Procedure Diagnosis: Colonoscopy Findings: Two small polyps removed Moderate diverticulosis seen in the left colon Moderate hemorrhoids on retroflexed exam. Plan: Await pathology results Patient has an appointment on 08/24/21 in the [facility] with? Pao Bautista NP? . Repeat Colonoscopy interval based on path results - in 5 years if polyps are adenomatous and 10 years if polyps are hyperplastic. Above findings were reviewed with the patient and colon polyps and diverticulosis handouts were given in the discharge area Surgeon:?Denisse Cleveland MD Anesthesia:?MAC (Dr Moon) Was an Rating Clerk used for this Procedure?:?Yes Rating Clerk:?Ashlee Ordoñez Estimated blood loss (mL):?0 Pathology:?other (a: transverse colon polyp? b: sigmoid polyp) Condition:?stable Disposition:?PACU
[2021-07-31 13:05] VITALS: BP 90/48; PULSE 54; RESP 18; TEMP 36.2; O2SAT 99
[2021-07-31 13:20] VITALS: BP 99/52; PULSE 52; RESP 17; TEMP 36.2; O2SAT 98
== END 2021-07-31 13:54 | disposition home or self-care (01) ==
PROVIDERS: Nurse Practitioner; PCP Physician Assistant Medical; Visit Provider Internal Medicine Gastroenterology
PROC: 0DJD8ZZ Inspection of Lower Intestinal Tract, Via Natural or Artificial Opening Endoscopic (ICD-10-PCS; CPT 45378; principal; 2021-07-31 11:50)
DX: Z12.11 Encounter for screening for malignant neoplasm of colon (principal); D12.3 Benign neoplasm of transverse colon; K57.30 Diverticulosis of large intestine without perforation or abscess without bleeding; K64.9 Unspecified hemorrhoids; D64.9 Anemia, unspecified; I10 Essential (primary) hypertension
CPT/HCPCS: 45380; 81025; 88305

== ENCOUNTER → 2021-08-08 08:15 | Outpatient (BNVA) | payer OTHER, SELFPAY | PROVIDERS: PCP Physician Assistant Medical; Visit Provider Surgery ==

== ENCOUNTER → 2021-08-24 14:54 | Outpatient (BNVA) | payer SELFPAY | PROVIDERS: PCP Physician Assistant Medical; Visit Provider Nurse Practitioner ==

== ENCOUNTER → 2021-09-04 14:20 | Outpatient (BNVA) | payer OTHER, SELFPAY | PROVIDERS: PCP Physician Assistant Medical; Visit Provider Physician Assistant ==

== ENCOUNTER 2021-09-05 08:11 | Outpatient (REF) | payer OTHER, SELFPAY | END 2021-09-05 08:12 | disposition home or self-care (01) | LOC: CF 08:11 | PROVIDERS: Visit Provider Nurse Practitioner | DX: A04.8 Other specified bacterial intestinal infections (principal); E66.01 Morbid (severe) obesity due to excess calories | CPT/HCPCS: 87338 ==

== ENCOUNTER → 2021-09-10 08:09 | Outpatient (BNVA) | payer OTHER, SELFPAY | PROVIDERS: PCP Physician Assistant Medical; Visit Provider Surgery ==

== ENCOUNTER → 2021-09-14 13:43 | Outpatient (BNVA) | payer OTHER, SELFPAY | PROVIDERS: PCP Physician Assistant Medical; Visit Provider Physician Assistant ==

== ENCOUNTER 2021-09-18 06:04 | Day surgery (SDC) | payer OTHER, SELFPAY ==
[2021-09-13 13:20] VITALS: BMI 51.9
[2021-09-14 09:59] LABS: MANUAL DIFF FLAG NO
[2021-09-14 10:14] LABS: Basophils Absolute Auto 0.1 X10*3/uL (0.0-0.2); Basophils Percent Auto 0.9 % (0-2); Eosinophils Absolute Auto 0.2 X10*3/uL (0.0-0.4); Eosinophils Percent Auto 3.3 % (0-4); Hematocrit 35.8 % (37.0-47.0); Hemoglobin 11.5 g/dl (12.0-16.0); Imm Gran Abs Auto 0.02 X10*3/uL (0.00-0.03); Imm Gran Pct Auto 0.3 % (0.0-0.4); Lymphocytes Absolute Auto 1.9 X10*3/uL (1.2-4.9); Lymphocytes Percent Auto 32.9 % (20-40); Mean Corpuscular HGB Conc 32.1 g/dl (31.0-35.0); Mean Corpuscular Hemoglobin 27.3 pg (27.0-33.0); Mean Platelet Volume 9.1 fL (9.4-12.3); Monocytes Absolute Auto 0.4 X10*3/uL (0.1-1.2); Monocytes Percent Auto 7.1 % (2-11); Neutrophils Absolute Auto 3.2 x10*3/uL (2.0-8.3); Neutrophils Percent Auto 55.5 % (45-73); Platelet Count 249 X10*3/uL (160-400); Red Blood Count 4.21 X10*6/uL (4.20-5.50); Red Cell Distribution Width 14.7 % (11.0-16.0); White Blood Count 5.8 X10*3/uL (4.8-10.8)
[2021-09-14 10:22] LABS: Prothrombin Time 11.3 SEC (9.9-13.0)
[2021-09-14 10:25] LABS: Partial Thromboplastin Time 41.6 SEC (24.1-38.0)
[2021-09-14 10:26] LABS: Estimated Average Glucose 100 mg/dL; Hemoglobin A1c % 5.1 %
[2021-09-14 10:39] LABS: Alanine Aminotransferase 19 U/L (0-31); Albumin Level 4.1 g/dL (3.5-5.0); Alkaline Phosphatase 69 U/L (39-117); Anion Gap 10 (12-20); Aspartate Amino Transferase 20 U/L (5-31); Bilirubin Total 0.4 mg/dL (0.0-1.0); Blood Urea Nitrogen 18 mg/dL (9-16); C Reactive Protein 2.03 mg/dL (< or = 0.50); Carbon Dioxide 25 mmol/L (22-29); Chloride 106 mmol/L (96-108); Cholesterol 238 mg/dL; Estimated Glomerular Filt Rate > 60; Glucose Random 111 mg/dL (60-115); HDL Cholesterol 46 mg/dL; LDL Cholesterol Calculated 159 mg/dl; Potassium 4.2 mmol/L (3.3-5.1); Sodium 137 mmol/L (135-145); Total Protein 6.4 g/dL (6.5-8.0); Triglycerides 167 mg/dL
[2021-09-14 11:00] LABS: Insulin 8 uU/mL (2-29); TSH reflex Free T4 1.66 uIU/mL (0.32-4.0)
--- NOTE | 2021-09-15 17:23 | MHC.SHP ---
Pre-Procedural Eval Section A Date of Service: 09/15/21 The patient is an INPATIENT: No The History & Physical has been completed within 30 days and I have reviewed it.: Yes Section B Chief Complaint: Morbid Severe Obesity Relevant Family History (Specify if Yes): No Relevant Social History: None Present Medications: None Medical History: No relevant PMH History of Previous Operations: No relevant previous surgery Allergies: Allergies Allergy/AdvReac Type Severity Reaction Status Date / Time citalopram [From Celexa] Allergy Severe hives Verified 09/10/21 11:04 Review of Systems Sugical H&P ROS: Negative: Constitution, Cardiovascular, Respiratory, Neurological, Psychiatric, Hem-Onc, Allergic/Immunologic, Gastrointestinal, Genitourinary, Musculoskeletal, Integumentary, Endocrine and Eyes/Ears/Nose/Throat Exam Surgical H&P Exam: Normal: HEENT, Normal: Heart, Normal: Lungs, Normal: Extremities, Normal: Abdomen, Normal: Skin and Normal: Neurological Plan Diagnosis/Plan: Unchanged I have reviewed the history and physical and performed a pertinent physical examination on my patient. No changes have occurred unless specified.
--- NOTE | 2021-09-17 10:47 | P.CONAN_ITS ---
Documented by User: Elsa Neil NP 09/17/21 10:54 HPI - Anesthesia Eval Consult details Narrative: 50yo F for Gastrectomy Sleeve, EGD, Poss Diaphragmatic Hernia, Poss Ventral Hernia, Poss open Xarelto for hx of PE/Factor V s/p colo with MAC 07/2021 PMFSH Active Problems Active Problems: All Active Problems (Updated 09/13/21 @ 13:26 by Violeta Fraga RN) Anemia (Acute) H. pylori infection (Acute) Colon cancer screening (Acute) Tubular adenoma of colon (Acute) Back pain (Acute) Insomnia (Acute) Panic attacks (Acute) Anxiety (Acute) Depression (Acute) Pulmonary embolism (Acute) Factor V deficiency (Acute) Sleep apnea with use of continuous positive airway pressure (CPAP) (Acute) GERD (gastroesophageal reflux disease) (Acute) Hypertension (Acute) Atrial fibrillation (Acute) Morbid obesity (Acute) Past Medical History Medical History (Updated 09/18/21 @ 07:59 by Kathe Rodriguez MD) Anxiety Atrial fibrillation Back pain COVID-19 COVID-19 vaccine series completed Depression Factor V deficiency GERD (gastroesophageal reflux disease) Hypertension Insomnia Morbid obesity Panic attacks Pulmonary embolism Sleep apnea with use of continuous positive airway pressure (CPAP) Family History Family History Mother COPD (chronic obstructive pulmonary disease) Hypertension Hyperlipidemia Father No problems noted. Brother No problems noted. Brother No problems noted. Brother No problems noted. Sister No problems noted. Family history of problems with anesthesia: No Surgical History Surgical History H/O colonoscopy History of esophagogastroduodenoscopy (EGD) Hx of hand surgery Hx of wisdom tooth extraction History of Problems with Anesthesia: No Social History Social History Are you a primary career manager to a significant other at home: No Do you presently have visiting nurse or other home services: No Alcohol intake: current Alcohol intake frequency: holidays/special occasions only Patient Tobacco Use Status: Former Tobacco user Quit Date: 2005 Tobacco use type: Cigarette Use of substances other than those prescribed or required for medical reasons: No Have you been hit, kicked, punched, or otherwise hurt by someone within the past year? If so, by whom?: No Are you DNR?: No Advance Directives: No Advance Directives Information Provided: Yes (declined informational brochure) Advance Directives on File: No Recently lost weight without trying: No Eating poorly because of decreased appetite: No Nutrition Risks: No Nutritional Risk Patient : No FDLMP: 08/29/21 : No Poor oral hygiene: No Meds Allergies Allergy/AdvReac Type Severity Reaction Status Date / Time citalopram [From Celexa] Allergy Severe hives Verified 09/10/21 11:04 Home Medications Medication Instructions Recorded Confirmed Last Taken Type lorazepam 0.5 mg tablet 0.5 mg PO BID PRN 01/31/21 09/13/21 Unknown History rivaroxaban 20 mg tablet 20 mg PO DAILY 01/31/21 09/13/21 09/11/21 History ascorbic acid (vitamin C) 250 mg 250 mg PO DAILY 02/14/21 09/13/21 Unknown History tablet omega-3 fatty acids 500 mg capsule 500 mg PO DAILY 02/14/21 09/13/21 Unknown History escitalopram oxalate 10 mg tablet 20 mg PO DAILY tab 07/03/21 09/13/21 09/18/21 History metoprolol tartrate 25 mg tablet 12.5 mg PO BID tab 07/03/21 09/13/21 09/18/21 History omeprazole 10 mg capsule,delayed 20 mg PO DAILY cap 07/03/21 09/13/21 09/18/21 History release trazodone 50 mg tablet 75 mg PO BEDTIME tab 07/03/21 09/13/21 Unknown History multivitamin 1 tab PO DAILY 08/24/21 09/13/21 Unknown History vitamin B complex (B 1 tab PO DAILY 08/24/21 09/13/21 Unknown History Complex-Vitamin B12) cholecalciferol (vitamin D3) 125 125 mcg PO DAILY 09/13/21 09/13/21 Unknown History mcg (5,000 unit) tablet (Vitamin D3) Exam Exam Date and Time: September 17, 2021 1047 Height,Weight and Vital Signs: Height 5 ft 3 in Weight 132.903 kg Pertinent Lab Results Pertinent Lab Results: Laboratory Tests 09/14/21 09/14/21 09/14/21 09:55 09:58 09:58 WBC 5.8 RBC 4.21 Hgb 11.5 L Hct 35.8 L MCV 85.0 MCH 27.3 MCHC 32.1 RDW 14.7 Plt Count 249 MPV 9.1 L Immature Gran % (Auto) 0.3 Neut % (Auto) 55.5 Lymph % (Auto) 32.9 Whitfield % (Auto) 7.1 Eos % (Auto) 3.3 Baso % (Auto) 0.9 Lymph # (Auto) 1.9 Whitfield # (Auto) 0.4 Eos # (Auto) 0.2 Baso # (Auto) 0.1 Abs Immat Gran (auto) 0.02 Absolute Neuts (auto) 3.2 Absolute Nucleated RBC 0.000 Nucleated RBC % (auto) 0.0 PT 11.3 INR 1.0 APTT 41.6 H Sodium Potassium Chloride Carbon Dioxide Anion Gap BUN Creatinine Estim Creat Clear Calc Estimated GFR Random Glucose Estimat Average Glucose Hemoglobin A1c % Insulin Level Calcium Total Bilirubin AST ALT Alkaline Phosphatase C-Reactive Protein Total Protein Albumin Triglycerides Cholesterol LDL Cholesterol, Calc HDL Cholesterol TSH Blood Type O Positive Antibody Screen NEGATIVE 09/14/21 09/14/21 09:58 09:58 WBC RBC Hgb Hct MCV MCH MCHC RDW Plt Count MPV Immature Gran % (Auto) Neut % (Auto) Lymph % (Auto) Whitfield % (Auto) Eos % (Auto) Baso % (Auto) Lymph # (Auto) Whitfield # (Auto) Eos # (Auto) Baso # (Auto) Abs Immat Gran (auto) Absolute Neuts (auto) Absolute Nucleated RBC Nucleated RBC % (auto) PT INR APTT Sodium 137 Potassium 4.2 Chloride 106 Carbon Dioxide 25 Anion Gap 10 L BUN 18 H Creatinine 0.90 Estim Creat Clear Calc 101.0 Estimated GFR > 60 Random Glucose 111 Estimat Average Glucose 100 Hemoglobin A1c % 5.1 Insulin Level 8 Calcium 9.0 Total Bilirubin 0.4 AST 20 ALT 19 Alkaline Phosphatase 69 C-Reactive Protein 2.03 H Total Protein 6.4 L Albumin 4.1 Triglycerides 167 Cholesterol 238 LDL Cholesterol, Calc 159 HDL Cholesterol 46 TSH 1.66 Blood Type Antibody Screen Narrative Narrative: EKG 02/2021 Vent. Rate : 078 BPM ? ? Atrial Rate : 078 BPM ?? P-R Int : 146 ms? QRS Dur : 076 ms ? ? QT Int : 388 ms ? ? ? P-R-T Axes : 055 027 018 degrees ?? QTc Int : 442 ms ? Normal sinus rhythm Normal ECG No previous ECGs available ECHO 11/2020 Normal LV sys function (EF 55-65%) Normal LV diastolic function Normal LV size. Normal LV wall thickness. Poorly visualized RV. Probably normal RV systolic function. Probably normal RV size. No significanct valvular abnormalities. Assessment and Plan Assessment Anesthesia Assessment: Chart Reviewed Final Anesthetic Review Family History of Problems with Anesthesia: No History of Problems with Anesthesia: No Documented by User: Kathe Rodriguez MD 09/18/21 08:03 [facility] Active Problems Active Problems: All Active Problems (Updated 09/13/21 @ 13:26 by Violeta Fraga RN) Anemia (Acute) H. pylori infection (Acute) Colon cancer screening (Acute) Tubular adenoma of colon (Acute) Back pain (Acute) Insomnia (Acute) Panic attacks (Acute) Anxiety (Acute) Depression (Acute) Pulmonary embolism (Acute) Factor V deficiency (Acute) Sleep apnea with use of continuous positive airway pressure (CPAP) (Acute) GERD (gastroesophageal reflux disease) (Acute) Hypertension (Acute) Atrial fibrillation (Acute) Morbid obesity (Acute) On xarelto- last dose 09/11/21. Bridged with fondaparinux since. TMJ syndrome. No dislocation Past Medical History Medical History (Updated 09/18/21 @ 07:59 by Kathe Rodriguez MD) Anxiety Atrial fibrillation Back pain COVID-19 COVID-19 vaccine series completed Depression Factor V deficiency GERD (gastroesophageal reflux disease) Hypertension Insomnia Morbid obesity Panic attacks Pulmonary embolism Sleep apnea with use of continuous positive airway pressure (CPAP) Family History Family History Mother COPD (chronic obstructive pulmonary disease) Hypertension Hyperlipidemia Father No problems noted. Brother No problems noted. Brother No problems noted. Brother No problems noted. Sister No problems noted. Surgical History Surgical History H/O colonoscopy History of esophagogastroduodenoscopy (EGD) Hx of hand surgery Hx of wisdom tooth extraction History of Problems with Anesthesia: No (Woke up crying after 1 surgery) Social History Social History Are you a primary career manager to a significant other at home: No Do you presently have visiting nurse or other home services: No Alcohol intake: current Alcohol intake frequency: holidays/special occasions only Patient Tobacco Use Status: Former Tobacco user Quit Date: 2005 Tobacco use type: Cigarette Use of substances other than those prescribed or required for medical reasons: No Have you been hit, kicked, punched, or otherwise hurt by someone within the past year? If so, by whom?: No Are you DNR?: No Advance Directives: No Advance Directives Information Provided: Yes (declined informational brochure) Advance Directives on File: No Recently lost weight without trying: No Eating poorly because of decreased appetite: No Nutrition Risks: No Nutritional Risk Patient : No FDLMP: 08/29/21 : No Poor oral hygiene: No Meds Allergies Allergy/AdvReac Type Severity Reaction Status Date / Time citalopram [From Celexa] Allergy Severe hives Verified 09/10/21 11:04 Home Medications Medication Instructions Recorded Confirmed Last Taken Type lorazepam 0.5 mg tablet 0.5 mg PO BID PRN 01/31/21 09/13/21 Unknown History rivaroxaban 20 mg tablet 20 mg PO DAILY 01/31/21 09/13/21 09/11/21 History ascorbic acid (vitamin C) 250 mg 250 mg PO DAILY 02/14/21 09/13/21 Unknown History tablet omega-3 fatty acids 500 mg capsule 500 mg PO DAILY 02/14/21 09/13/21 Unknown History escitalopram oxalate 10 mg tablet 20 mg PO DAILY tab 07/03/21 09/13/21 09/18/21 History metoprolol tartrate 25 mg tablet 12.5 mg PO BID tab 07/03/21 09/13/21 09/18/21 History omeprazole 10 mg capsule,delayed 20 mg PO DAILY cap 07/03/21 09/13/21 09/18/21 History release trazodone 50 mg tablet 75 mg PO BEDTIME tab 07/03/21 09/13/21 Unknown History multivitamin 1 tab PO DAILY 08/24/21 09/13/21 Unknown History vitamin B complex (B 1 tab PO DAILY 08/24/21 09/13/21 Unknown History Complex-Vitamin B12) cholecalciferol (vitamin D3) 125 125 mcg PO DAILY 09/13/21 09/13/21 Unknown History mcg (5,000 unit) tablet (Vitamin D3) Exam Height,Weight and Vital Signs: Height 5 ft 3 in Weight 132.903 kg Vital Signs Temp Pulse Resp BP Pulse Ox 09/18/21 06:18 98.2 F 61 18 114/76 94 Pertinent Lab Results Pertinent Lab Results: Laboratory Tests 09/14/21 09/14/21 09/14/21 09:55 09:58 09:58 WBC 5.8 RBC 4.21 Hgb 11.5 L Hct 35.8 L MCV 85.0 MCH 27.3 MCHC 32.1 RDW 14.7 Plt Count 249 MPV 9.1 L Immature Gran % (Auto) 0.3 Neut % (Auto) 55.5 Lymph % (Auto) 32.9 Whitfield % (Auto) 7.1 Eos % (Auto) 3.3 Baso % (Auto) 0.9 Lymph # (Auto) 1.9 Whitfield # (Auto) 0.4 Eos # (Auto) 0.2 Baso # (Auto) 0.1 Abs Immat Gran (auto) 0.02 Absolute Neuts (auto) 3.2 Absolute Nucleated RBC 0.000 Nucleated RBC % (auto) 0.0 PT 11.3 INR 1.0 APTT 41.6 H Sodium Potassium Chloride Carbon Dioxide Anion Gap BUN Creatinine Estim Creat Clear Calc Estimated GFR Random Glucose Estimat Average Glucose Hemoglobin A1c % Insulin Level Calcium Total Bilirubin AST ALT Alkaline Phosphatase C-Reactive Protein Total Protein Albumin Triglycerides Cholesterol LDL Cholesterol, Calc HDL Cholesterol TSH Blood Type O Positive Antibody Screen NEGATIVE 09/14/21 09/14/21 09:58 09:58 WBC RBC Hgb Hct MCV MCH MCHC RDW Plt Count MPV Immature Gran % (Auto) Neut % (Auto) Lymph % (Auto) Whitfield % (Auto) Eos % (Auto) Baso % (Auto) Lymph # (Auto) Whitfield # (Auto) Eos # (Auto) Baso # (Auto) Abs Immat Gran (auto) Absolute Neuts (auto) Absolute Nucleated RBC Nucleated RBC % (auto) PT INR APTT Sodium 137 Potassium 4.2 Chloride 106 Carbon Dioxide 25 Anion Gap 10 L BUN 18 H Creatinine 0.90 Estim Creat Clear Calc 101.0 Estimated GFR > 60 Random Glucose 111 Estimat Average Glucose 100 Hemoglobin A1c % 5.1 Insulin Level 8 Calcium 9.0 Total Bilirubin 0.4 AST 20 ALT 19 Alkaline Phosphatase 69 C-Reactive Protein 2.03 H Total Protein 6.4 L Albumin 4.1 Triglycerides 167 Cholesterol 238 LDL Cholesterol, Calc 159 HDL Cholesterol 46 TSH 1.66 Blood Type Antibody Screen Laboratory Results - last 24 hr 09/18/21 09/18/21 06:10 06:10 Urine Test NEGATIVE COVID-19 (KEILY) Negative COVID-19 Clin Com See Note Airway Mallampati Class: II TM Dist: >3cm Neck ROM: Full Loose/Missing/Broken Teeth: No Heart: RRR Lungs: CTAB Assessment and Plan Assessment Anesthesia Assessment: Anesthesia Plan Discussed Final Anesthetic Review History of Problems with Anesthesia: No (Woke up crying after 1 surgery) NPO: Yes ASA Class: III Final Preanesthetic Review: No Changes in Pt Med Stat, Meds/Allgs Chart Reviewed , Consent Obtained/Reviewed and Anes Risks/Benef Reviewed Patient Risk: Intermediate Procedure Risk: Intermediate Assessment/Block/Sedation in SS: Assess/Block/Sedation-SS Anesthetic Plan Anesthetic Plan: GA Disposition: Standard PACU and Inp. Admit - Standard Bed
[2021-09-18] VITALS (13 sets, daily range): BP systolic 114–169; BP diastolic 60–90; PULSE 61–69; RESP 12–18; TEMP 36.2–37; O2SAT 93–98
[2021-09-18 06:36] LABS: UPreg QC Valid YES; Urine Pregnancy NEGATIVE (NEGATIVE)
[2021-09-18 06:51] LABS: COVID-19 Test Negative (Negative)
[2021-09-18] MEDS: Lactated Ringers 1,000 ML 999 ML IV (06:56)
[2021-09-18] MEDS: Lactated Ringers 1,000 ML 100 ML IVCONT ×4 (06:56→18:24)
[2021-09-18] MEDS: ceFAZolin Sodium/Dextrose,Iso 2 GM/50 ML PIGGYBACK IV ×2 (07:52→13:16)
--- NOTE | 2021-09-18 10:16 | PM.OP ---
Brief Operative Note Date of Service: 09/18/21 Pre-op diagnosis: Morbid obesity with comorbidities (see below) Post-op diagnosis: same (& congenital abdominal adhesions) Procedure: INITIAL PATIENT BMI ON PRESENTATION AT OUR OFFICE: 60.7 kg/m2 LAST BMI BEFORE SURGERY: 52.6 kg/m2 COMORBIDITIES: Factor V deficiency, history of PE/DVT, atrial fibrilation, sleep apnea on CPAP, hypertension, GERD, depression, anxiety, panic attacks, insomnia, back pain, H pylori infection, liver fibrosis The patient participated in an intensive weekly lifestyle ?intervention and exercise program during which the patient ?has lost between the initial office visit and the last preoperative visit 39.8lbs, or 11.8% of initial actual body weight. The patient met the BMI-criteria for bariatric surgery based on the BMI on initial presentation. The patient should not be penalized for achieving such weight loss because ?it is not sustainable long-term without surgical intervention and it was achieved in preparation for bariatric surgery ?under my direction and based on my published research ([email or web address]) ?that a 10% preoperative weight loss improves long-term weight loss after surgery and reduces perioperative complications.? Insurance carriers such as [facility] have endorsed my recommendations ?and have included in their policies criteria to include a 10% preoperative weight loss requirement. PROCEDURE: Esophago-gastroscopy, laparoscopic lysis of adhesions, laparoscopic sleeve gastrectomy and laparoscopic gastropexy INDICATIONS: This is a 50 year-old female who was electively scheduled for laparoscopic, possibly open sleeve gastrectomy. The risks and complications of the procedure were discussed with the patient in advance, particularly the possibility of ; pulmonary embolism; staple line leak; bleeding; GERD; cardiac, pulmonary, or renal complications; as well as long-term problems such as insufficient weight loss, vitamin deficiency, strictures, or ulcers. The patient understood all the risks, and was in agreement to proceed with surgery. DESCRIPTION OF PROCEDURE: After informed consent was obtained from the patient, the patient was given preoperative antibiotics, and was transferred to the operating room. After successful induction of general anesthesia, pneumatic compressive devices were placed on both lower extremities. An upper endoscopy was performed next. The oropharynx and esophagus appeared to be within normal limits. There was no diaphragmatic hernia present consistent with the findings of the preoperative upper GI. The stomach was entered. Then after all fluid and air were suctioned and the stomach was fully decompressed, the scope was withdrawn and secured in the mid esophagus. The patient was then prepped and draped in the usual sterile manner, and abdominal access was established at the right upper quadrant with the Aleisha technique. A 12 mm blunt port was inserted, and the abdomen was insufflated with CO2 to a pressure of 15 mmHg. Under direct visualization, additional ports were placed, specifically two 5 mm Versi-step ports to the left upper quadrant, and a 5 mm Versi-Step port to the right upper quadrant. 1% lidocaine plain was used to infiltrate all port sites as well as all fascia defects. Using the EndoClose suture passer device, I placed a #1 Polysorb tie across the falciform ligament in order to retract it up against the abdominal wall and prevent injury of the ligament with our instruments during the procedure. Following that, the patient was placed in a steep reverse Trendelenburg position. An additional 5 mm port was placed to the right flank for the Mediflex retractor that was used to retract the left lobe of the liver. The gastro-esophageal fat pad was opened with the ultrasonic device (Thunderbeat, Olympus) and the anterior esophagus and hiatus were exposed. The angle of His was opened with the ultrasonic device the fundus of the stomach from any diaphragmatic and splenic attachments. I then opened the gastrocolic ligament between the transverse colon and the greater curvature of the stomach with the ultrasonic device to enter the lesser sac and facilitate the ligation of the short gastric vessels. I started at a mid-point along the greater curvature and using the Thunderbeat, all short gastric vessels were divided all the way to the angle of His until the left chris was completely dissected at its entirety. I then divided the gastro-colic ligament distally to a distance of about 3-4 cm proximal to the esophagus. There were extensive congenital adhesions between the pancreas and posterior gastric wall. Those were lysed completely with the ultrasonic device. Adhesiolysis took approximately 45 min to complete. Total operative time was 2 hours and 5 minutes. The stomach was then divided transversely with one Endo ELPIDIO-45 purple, two ELPIDIO 45 orange, two ELPIDIO-60 orange and one ELPIDIO-60 articulating purple loads using the AEON stapler and loads. Every effort was made that the gastric sleeve had a tubular shape and an even caliber throughout. Once the sleeve resection was completed, the staple line of the gastric sleeve was reinforced with Hemoclips. The resected stomach was retrieved without difficulty from the Aleisha port. A gastropexy was then performed in order to prevent postoperative GERD and partial gastric volvulus. Several interrupted 2.0 Surgidac sutures were placed between the sleeve's staple line and the previously divided greater omentum and gastro-colic ligament using the Endo-Stitch device. ?An upper endoscopy was performed. There was no narrowing at the GE junction. The scope was easily advanced all the way to the pylorus which was clearly visualized. There was no narrowing anywhere and the sleeve's caliber was even throughout. The sleeve's staple line was inspected and there was no evidence of ischemia, bleeding or dehiscence. At that point the gastroscope was withdrawn from the patient?s mouth while we were decompressing the bowel and the stomach from any remaining air. I looked into the lesser sac to see how the sleeve was situating and it was situating well. There was no bleeding from the staple line, spleen, or short gastric vessels. The Mediflex retractor was removed, and the undersurface of the liver was inspected and there was no bleeding. The patient was placed in supine position. I closed the fascial defect of the 12 mm port site with a figure of eight #1 Polysorb suture. Then 100 cc 0.25 % Marcaine plain with 10 mg of Dexamethasone were used to infiltrate the fascial closure as well as all skin incisions. At this point, the abdomen was deflated, all ports were removed under direct vision, and no bleeding was noted from any of the port sites. The skin incisions were irrigated with saline and were closed with 4-0 absorbable monofilament sutures. Steri-Strips and OpSites were used to cover all incisions. The patient was extubated and was transferred in stable condition to the recovery room for further care. I was present and performed all parker parts of the procedure. Ms. Cox was the executive assistant to president. There were no residents to assist with this case. David Shaw MD, PhD, FACS Surgeon: Kristian Shaw MD Anesthesia: GETA, local and other (TAP block) Was an Assistant Manager Retail used for this Procedure?: Yes Assistant Manager Retail: Diana Cox Estimated blood loss (mL): 10 IV fluids (mL): 2,200 Urine output (mL): 0 (No Menendez to record) Pathology: other (Stomach) Condition: stable Disposition: PACU
--- NOTE | 2021-09-18 10:22 | P.PNGS_ITS ---
Subjective Subjective Date of Service: 09/19/21 Interval history: Patient has mild incisional pain, but was able to ambulate and use the incentive spirometer. She is tolerating phase 1 bariatric diet Physical Exam Vital Signs: Vital Signs: Last Vital Signs Temp 98.1 F 09/18/21 10:15 Pulse 69 09/18/21 10:15 Resp 15 09/18/21 10:15 BP 154/85 H 09/18/21 10:15 Pulse Ox 97 09/18/21 10:15 Body Mass Index 51.9 GI: Inspection: Yes normal to inspection and Yes incision (clean, dry and intact) Extrem: Right lower extremity: normal to inspection (no calf tenderness) Left lower extremity: normal to inspection (no calf tenderness) Objective Data Active Medications Fentanyl (Fentanyl Citrate/Pf 100 Mcg/2 Ml Vial) 25 mcg IVPUSH Q5M PRN; Protocol PRN Reason: Pain, Moderate (Pain Scale 4-6 Hydromorphone HCl (Hydromorphone Hcl 0.5 Mg/0.5 Ml Syringe) 0.25 mg IVPUSH Q5M PRN; Protocol PRN Reason: Pain, Severe (Pain Scale 7-10) Lactated Ringer's (Lr) 1,000 mls @ 100 mls/hr IVCONT .Q10H MARCELLO Last Admin: 09/18/21 06:59 Dose: 100 mls/hr Documented by: TERRANCE Promethazine HCl 6.25 mg/ (Sodium Chloride) 50.25 mls @ 201 mls/hr IV ONCE PRN PRN Reason: Nausea and Vomiting Ondansetron HCl (Ondansetron Hcl 4 Mg/2 Ml Vial) 4 mg IVPUSH ONCE PRN PRN Reason: Nausea and Vomiting Labs CBC & Chem 7: 09/19/21 05:27 09/19/21 05:27 Labs: Laboratory Results - last 24 hr 09/18/21 09/18/21 06:10 06:10 Urine Test NEGATIVE COVID-19 (KEILY) Negative COVID-19 Clin Com See Note Procedures Date of Service Date of Service: 09/19/21 Progress Note: A&P Assessment and plan (1) S/P laparoscopic sleeve gastrectomy: Status: Acute Assessment and Plan: s/p laparoscopic sleeve gastrectomy, lysis of adhesions and gastropexy Doing well Check am labs. If OK, will discharge home? (2) Morbid obesity: Status: Acute (3) Atrial fibrillation: Status: Acute (4) Hypertension: Status: Acute (5) GERD (gastroesophageal reflux disease): Status: Acute (6) Sleep apnea with use of continuous positive airway pressure (CPAP): Status: Acute (7) Factor V deficiency: Status: Acute (8) Pulmonary embolism: Status: Acute (9) Depression: Status: Acute (10) Anxiety: Status: Acute (11) Panic attacks: Status: Acute (12) Insomnia: Status: Acute (13) Back pain: Status: Acute (14) Congenital intra-abdominal adhesions: Status: Acute (15) Liver fibrosis: Status: Acute Fall Risk Details Current Medications: Current Medications Fentanyl (Fentanyl Citrate/Pf 100 Mcg/2 Ml Vial) 25 mcg IVPUSH Q5M PRN; Pr otocol PRN Reason: Pain, Moderate (Pain Scale 4-6 Hydromorphone HCl (Hydromorphone Hcl 0.5 Mg/0.5 Ml Syringe) 0.25 mg IVPUSH Q5M PRN; Protocol PRN Reason: Pain, Severe (Pain Scale 7-10) Lactated Ringer's (Lr) 1,000 mls @ 100 mls/hr IVCONT .Q10H MARCELLO Last Admin: 09/18/21 06:59 Dose: 100 mls/hr Documented by: Promethazine HCl 6.25 mg/ (Sodium Chloride) 50.25 mls @ 201 mls/hr IV ONCE PRN PRN Reason: Nausea and Vomiting Ondansetron HCl (Ondansetron Hcl 4 Mg/2 Ml Vial) 4 mg IVPUSH ONCE PRN PRN Reason: Nausea and Vomiting Time Spent With Patient Time: Total time spent is greater than 50% in coordination of care (as documented) at patient's floor/unit and/or counseling patient: Time with patient: less than 15 minutes Quality Stroke Does the patient have a stroke diagnosis?: No VTE Prior VTE?: Yes Approximate Date of Prior VTE: 12/09/18 Approximate Time of Prior VTE: 15:00 VTE Risk Level:: Surgical - high VTE Device Contraindication: N/A - Device Ordered VTE Drug Contraindication: Treatment Not Indicated
--- NOTE | 2021-09-18 10:27 | P.DS_ITS ---
DS: Providers Provider Date of Service: 09/19/21 Primary care physician: ISABELLA Saucedo DS: Diagnosis Discharge Diagnosis (1) S/P laparoscopic sleeve gastrectomy: Status: Acute (2) Morbid obesity: Status: Acute (3) Atrial fibrillation: Status: Acute (4) Hypertension: Status: Acute (5) GERD (gastroesophageal reflux disease): Status: Acute (6) Sleep apnea with use of continuous positive airway pressure (CPAP): Status: Acute (7) Factor V deficiency: Status: Acute (8) Pulmonary embolism: Status: Acute (9) Depression: Status: Acute (10) Anxiety: Status: Acute (11) Panic attacks: Status: Acute (12) Insomnia: Status: Acute (13) Back pain: Status: Acute (14) Congenital intra-abdominal adhesions: Status: Acute (15) Liver fibrosis: Status: Acute DS: Summary Hospital Course Hospital Course: ADMITTING DIAGNOSIS: morbid obesity, ENRICO, GERD, Atrial Fibrillation, Pulmonary Embolism, HTN, Factor V deficiency ? DISCHARGE DIAGNOSIS: same, s/p laparoscopic sleeve gastrectomy ? PAST SURGICAL HISTORY: wisdom tooth extraction ? PROCEDURE: upper endoscopy, laparoscopic sleeve gastrectomy ? DISCHARGE SUMMARY: ? History of Present Illness: ? The patient is a??50 year-old woman with a BMI of?60.6 kg/m2 and associated co- morbidities as described above. The patient had extensive work-up,lost?43.8 lbs preoperatively and was electively scheduled for laparoscopic, possible open sleeve gastrectomy and gastropexy. Risks and complications of the surgery were discussed with the patient in advance, particularly the possibility of , pulmonary embolism, anastomotic leak, bleeding, bowel injury, GERD, cardiac, renal or pulmonary complications. The patient understood all the risks and was in agreement with the surgical plan. ? Hospital Course: ? The patient underwent an uneventful laparoscopic sleeve gastrectomy with gastropexy on the day of admission. Postoperatively, the patient was transferred to the surgical floor. The patient received IV Acetaminophen and IV dilaudid for pain control. Patient was started on bariatric phase 1 diet POD #0. On postoperative day one, the patient was feeling well without nausea, vomiting, fevers, or tachycardia. The patient had some mild incisional pain and the abdomen was soft. ? On the morning of postoperative day one, the patient was continued on 1 ounce of water or ice every half hour. During the day, the patient did fairly well, having some incisional pain, but able to ambulate adequately and to tolerate liquids well. ? Since the patient is doing well, we decided that the patient was ready to be discharged. The patient was given instructions to follow-up with me next week and to call my office for any fever over 101, persistent abdominal pain, nausea, vomiting, GERD, symptoms of DVT such as calf tenderness, or leg swelling, or pulmonary embolism such as chest pain or shortness of breath. The patient was also instructed to drink 40-60 ounces of liquids per day using the 1-ounce cups. The patient had been given prescriptions for Tylenol for pain, Zofran prn for nausea, and pantoprazole and carafate previously. The patient was encouraged to ambulate and use the incentive spirometer. The patient was allowed to shower, but no baths, and encouraged to stay active at home. All of these instructions were given to the patient personally. All questions were answered and the patient understood all instructions, the instructions were also given to the patient in print. Time Spent with Patient Time attestation: Total time spent providing and/or coordinating discharge services: Discharge coordination time: Less than 30 minutes Quality: Stroke Does the patient have a stroke diagnosis?: No Physical Exam Vital Signs: Vital Signs: Last Vital Signs Temp 98.1 F 09/18/21 10:15 Pulse 69 09/18/21 10:15 Resp 15 09/18/21 10:15 BP 154/85 H 09/18/21 10:15 Pulse Ox 97 09/18/21 10:15 Body Mass Index 51.9 DS: Data Data Completed and Pending Pending studies at discharge: Pending at discharge 09/18/21 09:29 Surgical [PTH] Routine Labs on day of discharge: Laboratory Results - last 24 hr 09/18/21 09/18/21 06:10 06:10 Urine Test NEGATIVE COVID-19 (KEILY) Negative COVID-19 Clin Com See Note Discharge Plan Discharge Patient Disposition: Home, Self-Care Referrals: Hannah Ortiz PA [Primary Care Provider] - 1 Week Discharge Medications: Continued lorazepam 0.5 mg tablet 0.5 mg PO BID PRN (Reason: Anxiety) RF: 0 escitalopram oxalate 10 mg tablet 20 mg PO DAILY RF: 0 metoprolol tartrate 25 mg tablet 12.5 mg PO BID RF: 0 trazodone 50 mg tablet 75 mg PO BEDTIME RF: 0 pantoprazole 40 mg tablet,delayed release (DR/EC) 40 mg PO DAILY Qty: 30 RF: 2 sucralfate 100 mg/mL suspension 10 ml PO BID Qty: 400 RF: 2 ondansetron HCl [Zofran] 4 mg tablet 4 mg PO Q12H Qty: 20 RF: 0 Held omega-3 fatty acids 500 mg capsule 500 mg PO DAILY RF: 0 Hold Instructions: until discussed with Dr Shaw rivaroxaban 20 mg tablet 20 mg PO DAILY RF: 0 Hold Instructions: until discussed with Dr Shaw fondaparinux 2.5 mg/0.5 mL syringe 2.5 mg subcut Q24H Qty: 5 RF: 1 Hold Instructions: until discussed with Dr Shaw Discontinued cholecalciferol (vitamin D3) [Vitamin D3] 125 mcg (5,000 unit) Tablet 125 mcg PO DAILY RF: 0 ascorbic acid (vitamin C) 250 mg tablet 250 mg PO DAILY RF: 0 omeprazole 10 mg capsule,delayed release(DR/EC) 20 mg PO DAILY RF: 0 Vitron-C 65 mg iron- 125 mg tablet,delayed release (DR/EC) 1 tab PO DAILY Qty: 30 RF: 2 vitamin B complex [B Complex-Vitamin B12] Tablet 1 tab PO DAILY RF: 0 multivitamin Tablet 1 tab PO DAILY RF: 0 phentermine 15 mg capsule 15 mg PO DAILY Qty: 30 RF: 0 polyethylene glycol 3350 [Miralax] 17 gram powder in packet 17 g PO DAILY Qty: 14 RF: 0 Activity Restrictions/Additional Instructions: No tub baths, sex or returning to work until discussed at first post op appointment. No exercise, alcohol, tobacco or illegal drug use. Continue to use incentive spirometer hourly while awake. Walk in home for 5- 10 minutes every 2 hours during the first week. Follow all instructions in the bariatric handbook and call with any questions.Discharge Instructions 1. Please call your doctor or come back to the emergency room should any new symptoms arise. 2. You will receive a courtesy call from [facility] 24-48 hours after discharge. 3. Activity: abstain from alcohol, practice limited stair climbing, no bending, no driving, no exercise, no illicit substances, no lifting, no sex, no tub bath, no work. 4. Diet: continue as discussed with Dr. Shaw. 5. Dressing Change/Wound Care: Your incision is covered by clear bandages and guaze underneath. If the area is tender, you may apply an ice pack for short intervals (no more than 20 minutes on, followed by at least 20 minutes off). Do not apply heat. Do not use creams, lotions, or topical antibiotics unless instructed to do so by your surgeon. These can cause infection or allergic reaction. 6. Call your doctor if: - Your temperature exceeds 101.5 F - You experience excessive pain or swelling - You have an unexpected reaction to medication - You have excessive bleeding - You experience continued vomiting/nausea - Your incision begins to separate - Your incision shows signs of infection such as increased redness, swelling, excessive pain, heat, or drainage (light blood or clear fluid is normal) 7. General instructions: No lifting greater than 5 lbs for the next 4 weeks[address] driving within 24 hours of taking narcotic pain medications. If you do not move your bowels in the next 2 days, please take milk of magnesia over the counter. Please follow the post op diet and do not advance your diet until you are seen in the office in about 2 weeks. Please walk around your home every hour or two to prevent blood clots from forming in your legs. You do not need to wake from sleeping to walk. Please sleep in a bed or couch to prevent kinking at the hips and knees. Please take your incentive spirometer (your lung book sewer) home with you and use it for the next few days to prevent pneumonias. You may shower, no hot tubs, baths or swimming pools. Please call the office with any questions or concerns such as increasing abdominal pain, fever, chills, shortness of breath, chest pain, leg pain or swelling, or redness or drainage from your incisions. Please stay on stage 3 diet which includes sugar free clear liquids such as ice pops and jello and broth and crystal light. Avoid all carbonation. Please drink 3 protein shakes with at least 25-30 grams of protein daily or 3 of the Celebrate 4:1 shakes which can be purchased in our office. The Celebrate shakes have all of the bariatric vitamins you need if you consume these shakes. If you are drinking other protein shakes, you will need to purchase the Celebrate multivitamins and calcium that we provide in the office (they will provide all the vitamins you need). Please make sure you are consuming at least 40-60 ounces of water in addition to your 3 protein shakes daily. Do not hesitate to contact the office with any questions at . The patient's medical history has been reviewed and they are considered low risk for post op DVT and therefore DVT prophylaxis is not considered necessary. Travel after surgery was reviewed. The patient has not disclosed any travel plans during the first 30 days after surgery and they have been advised that within the first 30 days after surgery any bus, plane, train or car travel over 2 hours in duration is contraindicated due to the possibility of developing blood clots from immobility. Any travel, needs to include periods of ambulation of 10 minutes in duration every 2 hours.? The patient was instructed to discuss any plans for travel during this period with their bariatric surgeon.
[2021-09-18] MEDS: HYDROmorphone HCl 0.5 MG/0.5 ML SYRINGE 0.25 MG IVPUSH (10:40)
[2021-09-18] MEDS: Famotidine/PF 20 MG/2 ML VIAL IVPUSH ×2 (10:42→21:36)
[2021-09-18 10:47] LABS: Hematocrit 37.5 % (37.0-47.0); Hemoglobin 12.1 g/dl (12.0-16.0)
[2021-09-18 11:06] LABS: Anion Gap 15 (12-20); Blood Urea Nitrogen 16 mg/dL (9-16); Calcium 8.8 mg/dL (8.4-10.2); Carbon Dioxide 21 mmol/L (22-29); Chloride 105 mmol/L (96-108); Creatinine Clr Calc Pharmacy 81.1; Estimated Glomerular Filt Rate 52; Glucose Random 165 mg/dL (60-115); Potassium 4.4 mmol/L (3.3-5.1); Sodium 137 mmol/L (135-145)
[2021-09-18] MEDS: Metoclopramide HCl 10 MG/2 ML VIAL IVPUSH (13:28)
[2021-09-18] MEDS: ondansetron HCL 4 MG/2 ML VIAL IVPUSH (19:15)
[2021-09-18] MEDS: 0.9 % Sodium Chloride Flush 3 ML SYRINGE IVFLUSH (21:36)
[2021-09-18] MEDS: Metoprolol Tartrate 12.5 MG HALFTAB PO (21:36)
[2021-09-19 03:42] VITALS: BP 142/64; PULSE 61; RESP 16; TEMP 36.1; O2SAT 93
[2021-09-19] MEDS: ondansetron HCL 4 MG/2 ML VIAL IVPUSH (03:54)
[2021-09-19] MEDS: Lactated Ringers 1,000 ML 100 ML IVCONT (03:54)
[2021-09-19 05:41] LABS: MANUAL DIFF FLAG NO
[2021-09-19 05:48] LABS: Basophils Percent Auto 0.2 % (0-2); Eosinophils Percent Auto 0.1 % (0-4); Hematocrit 35.5 % (37.0-47.0); Hemoglobin 11.1 g/dl (12.0-16.0); Imm Gran Abs Auto 0.04 X10*3/uL (0.00-0.03); Imm Gran Pct Auto 0.5 % (0.0-0.4); Lymphocytes Absolute Auto 1.4 X10*3/uL (1.2-4.9); Lymphocytes Percent Auto 17.3 % (20-40); Mean Corpuscular HGB Conc 31.3 g/dl (31.0-35.0); Mean Corpuscular Hemoglobin 26.8 pg (27.0-33.0); Mean Corpuscular Volume 85.7 fL (80.0-98.0); Mean Platelet Volume 9.4 fL (9.4-12.3); Monocytes Absolute Auto 0.7 X10*3/uL (0.1-1.2); Monocytes Percent Auto 8.1 % (2-11); Neutrophils Percent Auto 73.8 % (45-73); Platelet Count 260 X10*3/uL (160-400); Red Blood Count 4.14 X10*6/uL (4.20-5.50); Red Cell Distribution Width 14.3 % (11.0-16.0); White Blood Count 8.1 X10*3/uL (4.8-10.8)
[2021-09-19 06:01] LABS: Anion Gap 12 (12-20); Blood Urea Nitrogen 11 mg/dL (9-16); Calcium 8.6 mg/dL (8.4-10.2); Carbon Dioxide 24 mmol/L (22-29); Chloride 104 mmol/L (96-108); Creatinine Clr Calc Pharmacy 110.8; Estimated Glomerular Filt Rate > 60; Glucose Random 104 mg/dL (60-115); Sodium 136 mmol/L (135-145)
[2021-09-19 07:49] VITALS: BP 139/68; PULSE 60; RESP 18; TEMP 36.1; O2SAT 95
[2021-09-19] MEDS: Famotidine/PF 20 MG/2 ML VIAL IVPUSH (08:37)
[2021-09-19] MEDS: Metoprolol Tartrate 12.5 MG HALFTAB PO (08:37)
[2021-09-19] MEDS: Fondaparinux Sodium 2.5 MG/0.5 ML SYRINGE SUBCUT (09:11)
--- NOTE | 2021-09-19 09:18 | MHC.CM.PN ---
EMR REVIEWED, PT ADMITTED S/P LAP SLEEVE GASTRECTOMY, CM MET W/PT WHO REPORTS SHE IS INDEPENDENT W/ALL CARE, HAS A CPAP AND BP MACHINE FOR DME, NO HOME SERVICES, PT VERIFIES PCP CECILY FERNANDEZ, PT DECLINES HAVING AN HCP, IS UNDECIDED AT THIS TIME ABOUT COMPLETING BUT WOULD LIKE A BLANK HCP, CM HAS PROVIDED PT W/EDUCATIONAL INFORMATION AND BLANK HCP. D/C PLAN: HOME TODAY SELF-CARE, FAMILY FOR TRANSPORT.
--- NOTE | 2021-09-19 15:13 | HO.POSTANES ---
Post Anesthesia Evaluation Post Anesthesia Evaluation Vital Signs: Vital Signs Temp Pulse Resp BP Pulse Ox 09/19/21 07:49 97.0 F 60 18 139/68 95 09/19/21 03:42 96.9 F 61 16 142/64 H 93 Anesthesia: General Endotracheal-GETA Mental Status: Awake Pain Control: Satisfactory Nausea/Vomiting: None Hydration: Adequate Anesthesia-Related Issues: No Anes. Related Issues
== END 2021-09-19 09:52 | disposition home or self-care (01) ==
LOC: HO.SSS 06:05 → HO.S3 10:27
PROVIDERS: Nurse Practitioner; Physician Assistant Surgical; PCP Physician Assistant Medical; Visit Provider Surgery
PROC: (CPT 43845; principal; 2021-09-18 07:30)
DX: K21.9 Gastro-esophageal reflux disease without esophagitis (principal); E66.01 Morbid (severe) obesity due to excess calories; Z68.43 Body mass index [BMI] 50.0-59.9, adult; A04.8 Other specified bacterial intestinal infections; Z98.84 Bariatric surgery status; Z90.3 Acquired absence of stomach [part of]; Q43.3 Congenital malformations of intestinal fixation; I10 Essential (primary) hypertension; F32.9 Major depressive disorder, single episode, unspecified; G47.33 Obstructive sleep apnea (adult) (pediatric); D68.2 Hereditary deficiency of other clotting factors; I48.91 Unspecified atrial fibrillation; K74.00 Hepatic fibrosis, unspecified; G47.00 Insomnia, unspecified; I26.99 Other pulmonary embolism without acute cor pulmonale; Z79.01 Long term (current) use of anticoagulants; Z99.89 Dependence on other enabling machines and devices; Z79.899 Other long term (current) drug therapy; Z88.8 Allergy status to other drugs, medicaments and biological substances; Z86.16 Personal history of COVID-19; Z20.822 Contact with and (suspected) exposure to COVID-19; Z87.891 Personal history of nicotine dependence
CPT/HCPCS: 43775; 43659; 36415; 80048; 80053; 80061; 81025; 83036; 83525; 84443; 85014; 85018; 85025; 85610; 85730; 86140; 86850; 86900; 86901; 87635; 88307; 88342; 99024; A4649; J0131; J0690; J1100; J1170; J1652; J2250; J2405; J2765; J3010

== ENCOUNTER → 2021-09-24 08:11 | Outpatient (BNVA) | payer OTHER, SELFPAY | PROVIDERS: PCP Physician Assistant Medical; Visit Provider Surgery ==

== ENCOUNTER → 2021-10-02 15:54 | Outpatient (BNVA) | payer OTHER, SELFPAY | PROVIDERS: PCP Physician Assistant Medical; Visit Provider Nurse Practitioner ==

== ENCOUNTER → 2021-10-24 07:51 | Outpatient (BNVA) | payer MEDICAID, SELFPAY | PROVIDERS: PCP Physician Assistant Medical; Visit Provider Surgery | DX: E66.01 Morbid (severe) obesity due to excess calories (principal); Z68.42 Body mass index [BMI] 45.0-49.9, adult | CPT/HCPCS: 99212 ==

== ENCOUNTER → 2021-11-14 10:28 | Outpatient (BNVA) | payer MEDICAID, SELFPAY | PROVIDERS: PCP Physician Assistant Medical; Visit Provider Dietitian, Registered | DX: E66.01 Morbid (severe) obesity due to excess calories (principal); Z68.42 Body mass index [BMI] 45.0-49.9, adult | CPT/HCPCS: 97803 ==

== ENCOUNTER 2021-11-20 11:39 | Outpatient (REF) | payer MEDICAID, SELFPAY ==
[2021-11-20 14:13] LABS: H Pylori Breath Test Positive (Negative)
== END 2021-11-20 11:40 | disposition home or self-care (01) ==
LOC: HO.LNP 11:39
PROVIDERS: Physician Assistant; PCP Physician Assistant Medical; Visit Provider Physician Assistant Surgical
DX: E66.01 Morbid (severe) obesity due to excess calories (principal)
CPT/HCPCS: 83013; 99211

== ENCOUNTER → 2021-12-14 10:35 | Outpatient (BNVA) | payer MEDICAID, SELFPAY | PROVIDERS: PCP Physician Assistant Medical; Referring Provider Surgery; Visit Provider Dietitian, Registered | DX: E66.01 Morbid (severe) obesity due to excess calories (principal); Z68.41 Body mass index [BMI] 40.0-44.9, adult | CPT/HCPCS: 97803 ==

== ENCOUNTER 2022-01-03 11:20 | Outpatient (REF) | payer MEDICAID, SELFPAY ==
[2022-01-04 10:38] LABS: H Pylori Breath Test Positive (Negative)
== END 2022-01-03 11:21 | disposition home or self-care (01) ==
LOC: HO.LNP 11:20
PROVIDERS: Physician Assistant; PCP Physician Assistant Medical; Visit Provider Physician Assistant
DX: Z11.0 Encounter for screening for intestinal infectious diseases (principal); E66.01 Morbid (severe) obesity due to excess calories
CPT/HCPCS: 83013; 99211

== ENCOUNTER → 2022-01-17 14:44 | Outpatient (BNVA) | payer MEDICAID, SELFPAY | PROVIDERS: PCP Physician Assistant Medical; Referring Provider Surgery; Visit Provider Dietitian, Registered | DX: E66.01 Morbid (severe) obesity due to excess calories (principal); Z68.41 Body mass index [BMI] 40.0-44.9, adult | CPT/HCPCS: 97803 ==

== ENCOUNTER → 2022-01-28 08:17 | Outpatient (BNVA) | payer MEDICAID, SELFPAY | PROVIDERS: PCP Physician Assistant Medical; Referring Provider Surgery; Visit Provider Dietitian, Registered | DX: E66.01 Morbid (severe) obesity due to excess calories (principal) | CPT/HCPCS: 97803 ==

== ENCOUNTER → 2022-01-31 16:25 | Outpatient (BNVA) | payer MEDICAID, SELFPAY | PROVIDERS: PCP Physician Assistant Medical; Visit Provider Nurse Practitioner | DX: A04.8 Other specified bacterial intestinal infections (principal); K21.9 Gastro-esophageal reflux disease without esophagitis; E66.01 Morbid (severe) obesity due to excess calories; Z68.41 Body mass index [BMI] 40.0-44.9, adult; Z86.010 Personal history of colon polyps | CPT/HCPCS: 99212 ==

== ENCOUNTER → 2022-03-04 09:58 | Outpatient (BNVA) | payer MEDICAID, SELFPAY | PROVIDERS: PCP Physician Assistant Medical; Visit Provider Nurse Practitioner | DX: Z13.89 Encounter for screening for other disorder (principal) ==

== ENCOUNTER 2022-03-04 15:22 | Outpatient (REF) | payer MEDICAID, SELFPAY ==
[2022-03-05 14:38] LABS: H Pylori Breath Test Negative (Negative)
== END 2022-03-04 15:23 | disposition home or self-care (01) ==
LOC: HO.LNP 15:22
PROVIDERS: Visit Provider Nurse Practitioner
DX: A04.8 Other specified bacterial intestinal infections (principal)
CPT/HCPCS: 83013

== ENCOUNTER → 2022-03-06 11:04 | Outpatient (BNVA) | payer MEDICAID, SELFPAY | PROVIDERS: PCP Physician Assistant Medical; Visit Provider Physician Assistant Surgical | DX: E66.01 Morbid (severe) obesity due to excess calories (principal); Z68.41 Body mass index [BMI] 40.0-44.9, adult; Z98.84 Bariatric surgery status | CPT/HCPCS: 99212 ==

== ENCOUNTER → 2022-07-03 09:07 | Outpatient (BNVA) | payer MEDICAID, SELFPAY | PROVIDERS: PCP Physician Assistant Medical; Visit Provider Nurse Practitioner | DX: K21.9 Gastro-esophageal reflux disease without esophagitis (principal); A04.8 Other specified bacterial intestinal infections | CPT/HCPCS: 99212 ==

== ENCOUNTER → 2022-08-21 14:00 | Outpatient (BNVA) | payer OTHER, MEDICAID, SELFPAY | PROVIDERS: PCP Physician Assistant Medical; Visit Provider Counselor Mental Health | DX: F41.1 Generalized anxiety disorder (principal); Z98.84 Bariatric surgery status | CPT/HCPCS: 90834 ==

== ENCOUNTER → 2022-08-22 13:10 | Outpatient (RCR) | payer OTHER, SELFPAY ==
[2020-10-16 10:04] LABS: SARS-COV-2 PCR UMBRL Not Detected
[2020-10-20 13:21] LABS: SARS-COV-2 PCR UMBRL Not Detected
== END | disposition home or self-care (01) ==
LOC: HO.EMPCOV 10-10
PROVIDERS: Visit Provider Internal Medicine
DX: Z20.828 Contact with and (suspected) exposure to other viral communicable diseases (principal)
CPT/HCPCS: U0003

== ENCOUNTER → 2022-08-28 15:56 | Outpatient (BNVA) | payer MEDICAID, SELFPAY | PROVIDERS: PCP Physician Assistant Medical; Visit Provider Physician Assistant Surgical | DX: E66.01 Morbid (severe) obesity due to excess calories (principal); Z98.84 Bariatric surgery status; Z68.41 Body mass index [BMI] 40.0-44.9, adult | CPT/HCPCS: 90853; 99212 ==

== ENCOUNTER → 2022-09-04 17:00 | Outpatient (BNVA) | payer OTHER, MEDICAID, SELFPAY | PROVIDERS: PCP Physician Assistant Medical; Visit Provider Counselor Mental Health ==

== ENCOUNTER → 2022-10-09 17:00 | Outpatient (BNVA) | payer OTHER, MEDICAID, SELFPAY | PROVIDERS: PCP Physician Assistant Medical; Visit Provider Counselor Mental Health | DX: F41.1 Generalized anxiety disorder (principal); Z98.84 Bariatric surgery status | CPT/HCPCS: 90853 ==

== ENCOUNTER → 2022-10-23 17:00 | Outpatient (BNVA) | payer OTHER, MEDICAID, SELFPAY | PROVIDERS: PCP Physician Assistant Medical; Visit Provider Counselor Mental Health | DX: F41.1 Generalized anxiety disorder (principal); Z98.84 Bariatric surgery status | CPT/HCPCS: 90853 ==

== ENCOUNTER → 2022-10-30 17:00 | Outpatient (BNVA) | payer OTHER, MEDICAID, SELFPAY | PROVIDERS: PCP Physician Assistant Medical; Visit Provider Counselor Mental Health | DX: Z13.89 Encounter for screening for other disorder (principal) ==

== ENCOUNTER → 2022-11-06 17:00 | Outpatient (BNVA) | payer OTHER, MEDICAID, SELFPAY | PROVIDERS: PCP Physician Assistant Medical; Visit Provider Counselor Mental Health | DX: F41.1 Generalized anxiety disorder (principal); Z98.84 Bariatric surgery status | CPT/HCPCS: 90853 ==

== ENCOUNTER 2023-08-19 13:22 | Outpatient (REF) | payer OTHER, SELFPAY ==
[2023-08-19 13:49] LABS: MANUAL DIFF FLAG NO
[2023-08-19 14:16] LABS: Basophils Percent Auto 0.6 % (0-2); Eosinophils Absolute Auto 0.2 X10*3/uL (0.0-0.4); Eosinophils Percent Auto 4.1 % (0-4); Hematocrit 38.4 % (37.0-47.0); Hemoglobin 12.6 g/dl (12.0-16.0); Imm Gran Abs Auto 0.02 X10*3/uL (0.00-0.03); Imm Gran Pct Auto 0.4 % (0.0-0.4); Lymphocytes Absolute Auto 2.2 X10*3/uL (1.2-4.9); Lymphocytes Percent Auto 40.4 % (20-40); Mean Corpuscular HGB Conc 32.8 g/dl (31.0-35.0); Mean Corpuscular Hemoglobin 30.1 pg (27.0-33.0); Mean Corpuscular Volume 91.6 fL (80.0-98.0); Mean Platelet Volume 10.1 fL (9.4-12.3); Monocytes Absolute Auto 0.4 X10*3/uL (0.1-1.2); Monocytes Percent Auto 6.8 % (2-11); Neutrophils Absolute Auto 2.5 x10*3/uL (2.0-8.3); Neutrophils Percent Auto 47.7 % (45-73); Platelet Count 178 X10*3/uL (160-400); Red Blood Count 4.19 X10*6/uL (4.20-5.50); Red Cell Distribution Width 13.4 % (11.0-16.0); White Blood Count 5.3 X10*3/uL (4.8-10.8)
[2023-08-19 14:44] LABS: Estimated Average Glucose 94 mg/dL; Hemoglobin A1c % 4.9 % (<6.0)
[2023-08-19 15:00] LABS: Anion Gap 15 (12-20); Blood Urea Nitrogen 9 mg/dL (9-16); C Reactive Protein 0.43 mg/dL (< or = 0.50); Calcium 9.1 mg/dL (8.4-10.2); Carbon Dioxide 24 mmol/L (22-29); Chloride 107 mmol/L (96-108); Cholesterol 237 mg/dL (<200); Estimated Glomerular Filt Rate > 60; Glucose Random 88 mg/dL (60-115); HDL Cholesterol 61 mg/dL (>40); Iron 88 mcg/dL (30-160); LDL Cholesterol Calculated 152 mg/dL (<100); Percent Iron Saturation 33 % (15-50); Potassium 4.5 mmol/L (3.3-5.1); Sodium 141 mmol/L (135-145); Total Iron Binding Capacity 264 mcg/dL (228-428); Triglycerides 124 mg/dL (<150); Unsaturated Iron Binding 176 ug/dL
[2023-08-19 15:17] LABS: Ferritin 76 ng/mL (10-250); Insulin 3 uU/mL (2-29); TSH reflex Free T4 1.29 uIU/mL (0.32-4.0); Vitamin D 25-OH Total 45.4 ng/mL (>30)
[2023-08-19 15:20] LABS: Folate 14.8 ng/mL (> or = 4.0); Vitamin B12 750 pg/mL (200-900)
[2023-08-20 18:13] LABS: Calcium (PTHI) 9.3 mg/dL (8.6-10.4); PTHI 29 pg/mL (16-77)
[2023-08-22 01:58] LABS: Zinc 82 mcg/dL (60-130)
[2023-08-22 05:13] LABS: Vitamin A 57 mcg/dL (38-98)
[2023-08-24 15:19] LABS: Vitamin B1 27 nmol/L (8-30)
== END 2023-08-19 13:23 | disposition home or self-care (01) ==
LOC: HO.LAB 13:22
PROVIDERS: PCP Physician Assistant Medical; Visit Provider Physician Assistant Surgical
DX: E66.01 Morbid (severe) obesity due to excess calories (principal); I10 Essential (primary) hypertension; D64.9 Anemia, unspecified; Z98.84 Bariatric surgery status
CPT/HCPCS: 36415; 80048; 80061; 82306; 82607; 82728; 82746; 83036; 83525; 83540; 83970; 84425; 84443; 84590; 84630; 85025; 86140

== ENCOUNTER 2023-08-20 10:05 | Outpatient (AMB) | payer OTHER, SELFPAY ==
--- NOTE | 2023-08-20 10:07 | A.OFFVIS_ITS ---
Intake VS Expanded 08/20/23 10:18 BP 95/54 L Blood Pressure Location Lt brachial Blood Pressure Position Sitting Pulse 67 Pulse Source Pulse Oximeter Temp 96.2 F L Temperature Source Temporal Artery Scan Pulse Oximetry 97 Oxygen Delivery Method Room Air Height 5 ft 2.5 in Weight 266 lb 9.6 oz BMI 48.0 Body Fat % 48.7 Body Fat Mass 129.8 Fat Free Mass 136.6 Visceral Fat Rating 17.0 Body Water % 36.5 Body Water Mass 97.2 Muscle Mass/Score 129.8 Basal Metabolic Rate/Score 1,947 Intake Visit Reasons: (OV) PO LSG 09/18/21 Loan Coordinator Required: No Allergies citalopram [From Celexa] Allergy (Severe, Verified 08/20/23 10:10) hives Medication List - Last Reconciled 08/20/23 by ISABELLA Angel escitalopram oxalate 20 mg PO DAILY famotidine (Pepcid) 40 mg PO BEDTIME PRN flecainide 100 mg PO DAILY levonorgestrel (Liletta) 0 device intrauterine ONCE lorazepam 0.5 mg PO BID PRN metoprolol tartrate 12.5 mg PO BID rivaroxaban 20 mg PO DAILY trazodone 100 mg PO BEDTIME [Vitamin C 1,000 mg PO DAILY] [Vitron C PO DAILY] HPI HPI Comments History of Present Illness Details 52-year-old female presents to the offic e for 2 year follow-up of sleeve gastrectomy performed 09/18/2021. She was last seen in the office approximately 1 year ago. Her initial weight on 01/31/2021 was 337 lb with a BMI of 60.6. Her preoperative weight was 293 lb. Weight at her last visit on 08/28/2022 was 246 lb with a BMI of 44.2. Weight today is 266.6 pounds with a BMI of 48 Linear patient states that she had an increase in her metoprolol from 12.5 mg twice a day to 25 mg daily several months ago she has noticed a slight lightheaded feeling with positional change today and once or twice in the past month since changing her medications. This was done by her client services account manager, Dr. Prado, due to episodes of atrial fibrillation. Of greater concern, she states that she was in atrial fibrillation last night and took 1 dose of flecainide 100 mg, this typically results in conversion to sinus rhythm although she required another dose of flecainide this morning and has since returned to sinus rhythm. She additionally states short bursts of chest pain lasting approximately one second, 2-3 times per day, several times a week over the last 2 weeks. She additionally notes increased right lower extremity edema over the last month or so. She does have a history of pulmonary embolisms and remains on Eliquis however reports a recent trip to [place] in July. She did wear compression stockings during that time but did require a 24 hour flight to return home. She has not contacted her primary care physician or client services account manager about the above findings. To spoke with the nurse practitioner covering for Mario Estrada, who states that he will order a stat ultrasound through their office. He felt that based on the above findings, she did not require emergency treatment or an emergency appointment in their office. He stated that their office staff will call her with an appointment for the right lower extremity ultrasound. Male plan: none Exercise plan: none Any post op complications: none ENRICO: continues but not consistently DM: pre diabetic HTN: never Hyperlipidemia: continues GERD:?0-5 scale ??0 = no symptoms ??1 = symptoms noticeable but not bothersome 2 =symptoms bothersome but not daily ? 3 = symptoms bothersome and daily 4 = symptoms affect daily activities 5 = symptoms are incapacitating, unable to do daily activities ? How bad is the heartburn: 1 ? Heartburn while lying down: 1 ? Heartburn when standing up: 0 ? Heartburn after meals: 1 ? Does heartburn change your diet: 0 ? Does heartburn wake you up from sleep: 0 ? Do you have difficulty swallowin ? Do you have pain with swallowin ? If you take medicine for your reflux, does this affect your daily life: 0 Satisfaction with present condition - satisfied or not satisfied: dissatisfied [facility], [facility] Medical History Liver fibrosis COVID-19 vaccine series completed Tubular adenoma of colon Colon cancer screening H. pylori infection Back pain Insomnia Panic attacks Anxiety Depression COVID-19 Pulmonary embolism Factor V deficiency Sleep apnea with use of continuous positive airway pressure (CPAP) GERD (gastroesophageal reflux disease) Hypertension Atrial fibrillation Morbid obesity Surgical History H/O bariatric surgery H/O colonoscopy History of esophagogastroduodenoscopy (EGD) Hx of hand surgery Hx of wisdom tooth extraction Family History Mother COPD (chronic obstructive pulmonary disease) Hypertension Hyperlipidemia Father No problems noted. Brother No problems noted. Brother No problems noted. Brother No problems noted. Sister No problems noted. Social History Are you a primary transitional care manager to a significant other at home: No Do you presently have visiting nurse or other home services: No Alcohol intake: current Alcohol intake frequency: holidays/special occasions only Patient Tobacco Use Status: Former Tobacco user Quit Date: 2005 Tobacco use type: Cigarette service: No Current occupational status: employed Physical Exam Const General: cooperative and no acute distress Orientation/consciousness: patient oriented x3 Resp Effort & Inspection: normal respiratory effort Auscultation: clear to auscultation bilaterally Cardio Rate: regular rate Rhythm: regular rhythm GI Inspection: Yes normal to inspection and Yes incision (well healed) Palpation (GI): Soft to palpation and no masses Neuro General: patient oriented x3 Extrem Other: Slight asymmetrical right lower extremity greater than left lower extremity edema Assessment & Plan Assessment & Plan (1) Morbid obesity: Code(s): E66.01 - Morbid (severe) obesity due to excess calories Plan: yearly labs without significant abnormality aside from increase cholesterol start new meal plan using previous products Pure protein and one bars per pt preference: New meal plan: Based upon awakening at 630 am and going to bed around 930 pm Pure Protein powder shake, 1 scoop in 8 oz unsweetened almond milk at 730am-930 am another shake with 1/2 scoop in 8 oz unsweetened almond milk at 1030am-1230pm One Protein bar at 230pm-430pm meal at 6 pm 8 forks of protein and 8 forks of vegetables or salad last shake at 7pm-9pm 1/2 scoop in 8 oz unsweetened almond milk Try to drink 64 oz of water daily avoiding soda, juice and alcohol Exercise plan: Return to [employer]. Ask the underwriting manager or one of the trainers how to use the machines if you are unfamiliar with them. Start elliptical with a resistance of 2. Increase resistance by 1 every 3 min to your most comfortable resistance with a max resistance of 8. Reduce the resistance by 1 every 3 minutes back down to 2 and repeat cycles for 300 calories. Alternatively, start treadmill with a speed of 3.0 and incline of 0, increasing incline by 1 every 3 minutes to the highest comfortable level (max 6 for now) then decrease in the same fashion. Repeat process to a goal of 300 calories. Goal of 2000 calories burned or more weekly. You may also consider use of the stationary bike. The easiest would be to chose the fat-burn or interval training program on the machine and do this until you reach the 300 calorie goal. Alternatively, you can manually adjust the resistance in a similar fashion as mentioned above, (resistance of 2-8 with a goal speed of 12 mph). Tracking calories is essential. Alternatively start walking outside daily, tracking calories with a goal of 300 calories per day, daily. You can download the [employer] which can track your time, distance and calories while walking outside. You press start in the osmin when you start and then stop when you are finished. (2) Chest pain: Code(s): R07.9 - Chest pain, unspecified Plan: Discussed the case personally with nurse practitioner covering for her client services account manager with the patient sitting in front of me and the nurse practitioner's going to order an urgent ultrasound of her right lower extremity to rule out DVT. He felt that the patient did not require an urgent appointment and that he will follow up with her in 4-6 weeks or sooner if the ultrasound is positive. The patient was advised to seek medical attention immediately if she experiences any change in her symptoms or worsening symptoms and she is in agreement with that plan. Coding Level of Care Code Est Pt Level 4 (32341) Diagnoses Morbid obesity E66.01 Chest pain R07.9 Time Spent (min) 50
[2023-08-20 10:18] VITALS: BP 95/54; PULSE 67; TEMP 35.7; O2SAT 97; BMI 48.0
== END 2023-08-20 13:00 | disposition home or self-care (01) ==
PROVIDERS: PCP Physician Assistant Medical; Visit Provider Physician Assistant Surgical
DX: E66.01 Morbid (severe) obesity due to excess calories (principal); Z68.42 Body mass index [BMI] 45.0-49.9, adult
CPT/HCPCS: 99214

== ENCOUNTER → 2023-08-20 10:05 | Outpatient (BNVA) | payer OTHER, SELFPAY | PROVIDERS: PCP Physician Assistant Medical; Visit Provider Physician Assistant Surgical ==

== ENCOUNTER 2023-09-03 11:16 | Outpatient (AMB) | payer OTHER, SELFPAY ==
--- NOTE | 2023-09-03 13:12 | MHC.WMTHER ---
Intake Intake Visit Reasons: (OV) PO LSG 09/18/21 Allergies citalopram [From Celexa] Allergy (Severe, Verified 08/20/23 10:10) hives PFSH Medical History Liver fibrosis COVID-19 vaccine series completed Tubular adenoma of colon Colon cancer screening H. pylori infection Back pain Insomnia Panic attacks Anxiety Depression COVID-19 Pulmonary embolism Factor V deficiency Sleep apnea with use of continuous positive airway pressure (CPAP) GERD (gastroesophageal reflux disease) Hypertension Atrial fibrillation Morbid obesity Surgical History H/O bariatric surgery H/O colonoscopy History of esophagogastroduodenoscopy (EGD) Hx of hand surgery Hx of wisdom tooth extraction Family History Mother COPD (chronic obstructive pulmonary disease) Hypertension Hyperlipidemia Father No problems noted. Brother No problems noted. Brother No problems noted. Brother No problems noted. Sister No problems noted. Social History Are you a primary managed care analyst to a significant other at home: No Do you presently have visiting nurse or other home services: No Alcohol intake: current Alcohol intake frequency: holidays/special occasions only Patient Tobacco Use Status: Former Tobacco user Quit Date: 2005 Tobacco use type: Cigarette service: No Current occupational status: employed Behavioral Health Assessment Weight Management Therapy Therapy Notes Details Patient is two years post op gastric sleeve surgery. She reported weight gain and struggling to get back on track, has more pain and discomfort now. She reported doing well on the plan for a few days and then will fall off. We discussed the day on quarters, having a scheduled plan for her workouts, putting a picture up from when she felt her best. (per previous intake) She reported that she is struggling. Pt reported that she has a history of anxiety, panic attacks, emotional eating, and some binging. March of last year she went on a two month vacation and was eating out, eating what she wanted and since then, has not been able to get back on track. Eats whatever she wants and to the point of being full, also has been having two alcoholic drinks a week at home which is something she never used to do. Presenting Concerns Referral Source self Reason for referral seeking group therapy Precipitating Event weight gain, emotional eating Employment Employment Status [employer] [facility] [employer] Psychiatric history Patient is currently in therapy. Assessment & Plan Assessment & Plan (1) Generalized anxiety disorder: Code(s): F41.1 - Generalized anxiety disorder (2) S/P laparoscopic sleeve gastrectomy: Code(s): Z98.84 - Bariatric surgery status Plan Patient is looking for additional therapeutic support to help manage emotions and relationship with food. She is appropriate for group therapy but did not find it helpful in the past and would like 1:1 therapy. Coding Level of Care Code Tele Psytx 45 mins (20407) Diagnoses Generalized anxiety disorder F41.1 S/P laparoscopic sleeve gastrectomy Z98.84 Time Spent (min) 40
== END 2023-09-03 13:12 | disposition home or self-care (01) ==
PROVIDERS: PCP Physician Assistant Medical; Visit Provider Counselor Mental Health
DX: F41.1 Generalized anxiety disorder (principal); Z98.84 Bariatric surgery status
CPT/HCPCS: 90834

== ENCOUNTER → 2023-09-03 11:16 | Outpatient (BNVA) | payer OTHER, SELFPAY | PROVIDERS: PCP Physician Assistant Medical; Visit Provider Counselor Mental Health ==

== ENCOUNTER 2023-09-17 12:56 | Outpatient (AMB) | payer OTHER, SELFPAY ==
--- NOTE | 2023-09-17 09:57 | MHC.OFFVISWM ---
Intake VS Expanded 09/17/23 09:58 Height 5 ft 2.5 in Weight 258 lb 6.4 oz BMI 46.5 Body Fat % 62.8 Body Fat Mass 162.2 Fat Free Mass 96 Visceral Fat Rating 27 Body Water % 25.5 Muscle Mass/Score 90.4 Intake Visit Reasons: (TV) PO LSG 09/18/21 Allergies citalopram [From Celexa] Allergy (Severe, Verified 08/20/23 10:10) hives HPI HPI Comments History of Present Illness Details 52-year-old female presents to the office for 2 year follow-up of sleeve gastrectomy performed 09/18/2021. She had been lost to follow up for approximately 1 year ago. Her initial weight on 01/31/2021 was 337 lb with a BMI of 60.6. Her preoperative weight was 293 lb. Weight at her last visit on 08/20/23 was 266.6 lb with a BMI of 48. Weight today is 258.4 pounds with a BMI of 46.5, indicating an 8.2 pound weight loss She states that she had an US of her leg and was neg for DVT. She saw [employer] [employer] [employer] [facility] due to her complaints of CP and hx of irrregular rhythm. BP has been symptomatically low and this was changed from Metoprolol 25 mg BID to 12.5 mg in am and 25 mg at hs. She reports her sx have since resolved. She also saw her PCP for hx [place] and BP was 116/70. She is using CPAP but not completely through the night 2 nights per week. She reports 3 of 7 days she is not doing the bar (not sure why she skips), not measuring by forks, using eyeball method. Not doing the last shake at night due to not feeling hungry and forgets. Meal plan: Pure Protein powder shake, 1 scoop in 8 oz unsweetened almond milk at 730am-930am another shake with 1/2 scoop in 8 oz unsweetened almond milk at 1030am-1230pm One Protein bar at 230pm-430pm meal at 6 pm 8 forks of protein and 8 forks of vegetables or salad last shake at 7pm-9pm 1/2 scoop in 8 oz unsweetened almond milk Drinking 48 oz water Exercise: walking, 2-3 x per week, 300-400 calories gym x 1 today for the first time, treadmill speed 3, incline 0-6, 300 calories PFSH Medical History Liver fibrosis COVID-19 vaccine series completed Tubular adenoma of colon Colon cancer screening H. pylori infection Back pain Insomnia Panic attacks Anxiety Depression COVID-19 Pulmonary embolism Factor V deficiency Sleep apnea with use of continuous positive airway pressure (CPAP) GERD (gastroesophageal reflux disease) Hypertension Atrial fibrillation Morbid obesity Surgical History H/O bariatric surgery H/O colonoscopy History of esophagogastroduodenoscopy (EGD) Hx of hand surgery Hx of wisdom tooth extraction Family History Mother COPD (chronic obstructive pulmonary disease) Hypertension Hyperlipidemia Father No problems noted. Brother No problems noted. Brother No problems noted. Brother No problems noted. Sister No problems noted. Social History Are you a primary care asst to a significant other at home: No Do you presently have visiting nurse or other home services: No Alcohol intake: current Alcohol intake frequency: holidays/special occasions only Patient Tobacco Use Status: Former Tobacco user Quit Date: 2005 Tobacco use type: Cigarette service: No Current occupational status: employed Review of Systems Const All systems reviewed & are unremarkable except as noted in HPI and below Assessment & Plan Assessment & Plan (1) Morbid obesity: Code(s): E66.01 - Morbid (severe) obesity due to excess calories Plan: She had not been doing the shakes or bars correctly. This was addressed to clarify that the protein shakes are over a 2 hour. As is the protein bar. She was encouraged to follow the meal plan now exactly as well as to measure her food with a fork. She will increase her days at the gym and or walking. Encouraged to continue to text me her weight weekly on Wednesdays. Return to clinic 3 weeks. Telehealth Telehealth Location of provider rendering services: practice address Location of patient: address on file Patient Identification confirmed using: Name, : Yes Telehealth method: voice only Patient verbally consented to treatment: Yes Patient verbally consented to billing insurance company: Yes Patient informed of any privacy concerns related to visit: Yes Minutes spent on Phone/Video with Pt.: 20 Coding Level of Care Code Tele Est Pt Level 3 (09523) Diagnoses Morbid obesity E66.01 Time Spent (min) 25
[2023-09-17 09:58] VITALS: BMI 46.5
== END 2023-09-17 12:59 | disposition home or self-care (01) ==
LOC: HO.HBS 12:56
PROVIDERS: PCP Physician Assistant Medical; Visit Provider Physician Assistant Surgical
DX: E66.01 Morbid (severe) obesity due to excess calories (principal)
CPT/HCPCS: 99213

== ENCOUNTER → 2023-09-17 12:56 | Outpatient (BNVA) | payer OTHER, SELFPAY | PROVIDERS: PCP Physician Assistant Medical; Visit Provider Physician Assistant Surgical ==

== ENCOUNTER 2023-09-17 14:46 | Outpatient (AMB) | payer OTHER, SELFPAY ==
--- NOTE | 2023-10-22 15:33 | A.OFFWM_ITS ---
Intake Intake Visit Reasons: (OV) PO LSG 09/18/21 Allergies citalopram [From Celexa] Allergy (Severe, Verified 08/20/23 10:10) hives PFSH Medical History Liver fibrosis COVID-19 vaccine series completed Tubular adenoma of colon Colon cancer screening H. pylori infection Back pain Insomnia Panic attacks Anxiety Depression COVID-19 Pulmonary embolism Factor V deficiency Sleep apnea with use of continuous positive airway pressure (CPAP) GERD (gastroesophageal reflux disease) Hypertension Atrial fibrillation Morbid obesity Surgical History H/O bariatric surgery H/O colonoscopy History of esophagogastroduodenoscopy (EGD) Hx of hand surgery Hx of wisdom tooth extraction Family History Mother COPD (chronic obstructive pulmonary disease) Hypertension Hyperlipidemia Father No problems noted. Brother No problems noted. Brother No problems noted. Brother No problems noted. Sister No problems noted. Social History Are you a primary caregivers homecare to a significant other at home: No Do you presently have visiting nurse or other home services: No Alcohol intake: current Alcohol intake frequency: holidays/special occasions only Patient Tobacco Use Status: Former Tobacco user Quit Date: 2005 Tobacco use type: Cigarette service: No Current occupational status: employed Behavioral Health Assessment Weight Management Therapy Therapy Notes Details Patient is two years post op gastric sleeve surgery. She reported weight gain and struggling to get back on track, has more pain and discomfort now. She reported doing well on the plan for a few days and then will fall off. We discussed the day on quarters, having a scheduled plan for her workouts, putting a picture up from when she felt her best. (per previous intake) She reported that she is struggling. Pt reported that she has a history of anxiety, panic attacks, emotional eating, and some binging. March of last year she went on a two month vacation and was eating out, eating what she wanted and since then, has not been able to get back on track. Eats whatever she wants and to the point of being full, also has been having two alcoholic drinks a week at home which is something she never used to do. Presenting Concerns Referral Source self Reason for referral seeking group therapy Precipitating Event weight gain, emotional eating Employment Employment Status [facility] Psychiatric history Patient is currently in therapy. Assessment & Plan Assessment & Plan (1) Generalized anxiety disorder: Code(s): F41.1 - Generalized anxiety disorder (2) S/P laparoscopic sleeve gastrectomy: Code(s): Z98.84 - Bariatric surgery status Plan Patient is looking for additional therapeutic support to help manage emotions and relationship with food. She is appropriate for group therapy but did not find it helpful in the past and would like 1:1 therapy. Coding Level of Care Code Psytx 30 mins (63443) Diagnoses Generalized anxiety disorder F41.1 S/P laparoscopic sleeve gastrectomy Z98.84 Time Spent (min) 30
== END 2023-10-22 15:33 | disposition home or self-care (01) ==
PROVIDERS: PCP Physician Assistant Medical; Visit Provider Counselor Mental Health
DX: F41.1 Generalized anxiety disorder (principal); Z98.84 Bariatric surgery status
CPT/HCPCS: 90832

== ENCOUNTER 2025-01-11 14:50 | Outpatient (AMB) | payer OTHER, SELFPAY ==
--- NOTE | 2025-01-11 14:59 | A.OFFVIS_ITS ---
VS Expanded 01/11/25 15:09 BP 125/59 L Blood Pressure Location Rt brachial Blood Pressure Position Sitting Pulse 77 Pulse Source Pulse Oximeter Temp 97.9 F Temperature Source Temporal Artery Scan Pulse Oximetry 96 Oxygen Delivery Method Room Air Height 5 ft 2.5 in Weight 287 lb 9.6 oz BMI 51.8 Body Fat % 51.6 Body Fat Mass 148.4 Fat Free Mass 139.2 Visceral Fat Rating 20.0 Body Water % 34.4 Body Water Mass 99.0 Muscle Mass/Score 132.0 Basal Metabolic Rate/Score 2,008 Intake Visit Reasons: (OV) PO LSG 09/18/21 *GLP-1* [employer] Required: No Allergies citalopram [From Celexa] Allergy (Severe, Verified 01/11/25 15:06) hives Medication List - Last Reconciled 01/11/25 by ISABELLA Angel escitalopram oxalate 20 mg PO DAILY famotidine (Pepcid) 40 mg PO BEDTIME PRN flecainide 100 mg PO DAILY levonorgestrel (Liletta) 0 device intrauterine ONCE lorazepam 0.5 mg PO BID PRN metoprolol tartrate 12.5 mg PO BID rivaroxaban 20 mg PO DAILY trazodone 100 mg PO BEDTIME [Vitamin C 1,000 mg PO DAILY] HPI Comments Details: This?a?54?yo female who is s/p LSG without hiatal hernia repair on?09/18/2021. Presents for 3 year 4 month post op visit. Weight today is 287.6 pounds, with a BMI of 51.8. There has been a 69.4 pound weight loss,(initial weight 357 pounds) since starting the program on 01/31/2021 reflecting a 19.4 % total body weight loss and a weight loss of 5.4 pounds since surgery (operative weight 293 pounds) reflecting a 0.18% TBWL since surgery. No complaints of nausea, emesis, abdominal pain or reflux. Reports infrequent but normal bowel movements everyday. States lowest weight was 225 pounds Present meal plan includes: nothing formal ? Exercise routine includes: none gym membership at Likes to swim [facility] Medical History Liver fibrosis COVID-19 vaccine series completed Tubular adenoma of colon Colon cancer screening H. pylori infection Back pain Insomnia Panic attacks Anxiety Depression COVID-19 Pulmonary embolism Factor V deficiency Sleep apnea with use of continuous positive airway pressure (CPAP) GERD (gastroesophageal reflux disease) Hypertension Atrial fibrillation Morbid obesity Surgical History H/O bariatric surgery H/O colonoscopy History of esophagogastroduodenoscopy (EGD) Hx of hand surgery Hx of wisdom tooth extraction Family History Mother COPD (chronic obstructive pulmonary disease) Hypertension Hyperlipidemia Father No problems noted. Brother No problems noted. Brother No problems noted. Brother No problems noted. Sister No problems noted. Social History Are you a primary critical care registered nurse to a significant other at home: No Do you presently have visiting nurse or other home services: No Alcohol intake: current Alcohol intake frequency: holidays/special occasions only Patient Tobacco Use Status: Former Tobacco user Tobacco use type: Cigarette service: No Current occupational status: employed Physical Exam Vital Signs: Last Vital Signs Temp 97.9 F 01/11/25 15:09 Pulse 77 01/11/25 15:09 BP 125/59 L 01/11/25 15:09 Pulse Ox 96 01/11/25 15:09 Oxygen Delivery Method Room Air 01/11/25 15:09 BMI result Body Mass Index 51.8 Const General: healthy appearing and no acute distress Resp Effort & Inspection: normal respiratory effort Auscultation: clear to auscultation bilaterally Cardio Rate: regular rate Rhythm: regular rhythm GI Auscultation: normal bowel sounds Extrem General: Yes normal to inspection Assessment & Plan Assessment & Plan (1) S/P laparoscopic sleeve gastrectomy: Code(s): Z98.84 - Bariatric surgery status Category: Surgical Plan: Patient has regained significant weight as a result not following a meal plan or exercise plan. We discussed the importance of both. She was given information regarding the right BMI osmin. additionally, she states that she likes to swim and does not have access to a pool but lives in the [place] area. I was able to call the [facility] in [place] and spoke with the director, Ana Laura, to request membership discount which she states she will be able to provide. Patient will track calories, with a goal of burning 300 per day, 7 days a week. We will have her return to the office in about 6 weeks. I gave her my cell phone number so that she may communicate with me her weight weekly and text with any questions or concerns.
[2025-01-11 15:09] VITALS: BP 125/59; PULSE 77; TEMP 36.6; O2SAT 96; BMI 51.8
== END 2025-01-11 16:04 | disposition home or self-care (01) ==
LOC: HO.HBS 14:50
PROVIDERS: PCP Physician Assistant Medical; Visit Provider Physician Assistant Surgical
DX: E66.813 Obesity, class 3 (principal); Z68.43 Body mass index [BMI] 50.0-59.9, adult; Z90.3 Acquired absence of stomach [part of]; Z98.84 Bariatric surgery status
CPT/HCPCS: 99213